=== PATIENT | female | born 1955 | race Caucasian/White ===

== ENCOUNTER → 2016-10-29 | Outpatient (CLI) | payer MEDICARE | END | disposition home or self-care (01) | LOC: GMA 06:15 | PROVIDERS: ATTEND Nurse Practitioner Acute Care | DX: N30.00 Acute cystitis without hematuria (principal) ==

== ENCOUNTER → 2016-11-05 | Outpatient (CLI) | payer MEDICARE ==
--- NOTE | 2016-11-07 09:50 | RAD ---
EXAM DESCRIPTION: XR HIP 2 OR MORE VIEWS CLINICAL HISTORY: PAIN IN RIGHT HIP COMPARISON: Pelvic radiograph on the same visit. TECHNIQUE: AP: neutral and abduction views right hip. FINDINGS: Narrowing of the superior right hip joint space. Prominent right acetabular roof. No definite fracture. Decreased bone density. No abnormal radiodense objects in the soft tissues or joint spaces. IMPRESSION: Narrowing of the right superior hip joint space and hypertrophy of the acetabulum roof. This could be contributing to CAM type femoroacetabular impingement. Electronically signed by: Angelo Roberts MD 11/07/2016 09:48
--- NOTE | 2016-11-07 10:09 | RAD ---
EXAM DESCRIPTION: XR PELVIS 1-2 VIEWS CLINICAL HISTORY: PAIN IN RIGHT HIP COMPARISON: Radiographs of the right hip on the same visit. TECHNIQUE: AP view only. FINDINGS: No fracture dislocation. Mild to moderate decreased bone density. Hypertrophic lateral right acetabular roof.No abnormal radiodense objects in the soft tissues or joint spaces. Spondylosis in the lower lumbar spine. Soft tissue calcifications lateral to the right iliac bone. Hypertrophy of the pubic symphysis. IMPRESSION: Overall bone density is decreased. Hypertrophic superolateral right acetabular spur which could be contributing to pincer type acetabular impingement. No acute bony abnormality of the pelvis. Electronically signed by: Angelo Roberts MD 11/07/2016 10:08
== END | disposition home or self-care (01) ==
LOC: RAD 08:17
PROVIDERS: ATTEND Orthopaedic Surgery
DX: M25.551 Pain in right hip (principal)

== ENCOUNTER → 2016-11-08 | Outpatient (CLI) | payer MEDICARE ==
--- NOTE | 2016-11-09 10:35 | MRI ---
Study: MRI of the Right Hip. Indication: RT HIP PAIN Technique: Multiplanar, multi sequence MRI of the right hip was obtained without intravenous contrast. Comparison: None. Findings: Degenerative full-thickness tearing at the base of the anterior superior right hip labrum. Grade 2/3 chondral thinning throughout the majority right hip joint without full-thickness chondral defect. Mild acetabular roof osteophyte formation. No acute fracture or osteonecrosis. Tiny right effusion Pronounced lower lumbar disc disease. Mild left hip osteoarthritis. Mild to moderate pubic symphysis osteoarthritis. High-grade tendinosis and attenuation bilateral hamstring tendon origins. Tendinosis bilateral gluteus minimus/medius tendon insertions with moderate right and mild left greater trochanteric bursal edema. Impression: Mild right hip osteoarthritis with degenerative tearing of the anterior superior right hip labrum and a tiny effusion. No acute fracture or osteonecrosis. Additional findings as above. Electronically signed by: Travis Rios MD 11/09/2016 7:28 AM FRAME BUILDER
== END | disposition home or self-care (01) ==
LOC: MRI 11:06
PROVIDERS: ATTEND Orthopaedic Surgery
DX: M25.551 Pain in right hip (principal)

== ENCOUNTER 2016-12-08 06:00 | Day surgery (SDC) | payer MEDICARE ==
[2016-12-08] MEDS ORDERED: LACTATED RINGERS 1,000 ML ONE (06:17)
[2016-12-08] MEDS ORDERED: BUPIVACAINE 0.25% INJ 30 ML VIAL INJ ONE (06:29)
[2016-12-08] MEDS ORDERED: LIDOCAINE 1% W/ EPINEPHRINE 20 ML VIAL INJ ONE (06:29)
[2016-12-08] MEDS ORDERED: methylPREDNISolone ACETATE 80 MG/ML VIAL ONE (06:30)
[2016-12-08] MEDS ORDERED: fentaNYL CITRATE INJ 50 MCG/ML AMP ONE (07:57)
[2016-12-08 09:38] VITALS: BP 138/73; TEMP 96.8; O2SAT 98
[2016-12-08] MEDS ORDERED: PROPOFOL 200 MG/20 ML VIAL IV ONE (12:00)
[2016-12-08] MEDS ORDERED: LIDOCAINE 1% 10 ML VIAL INJ ONE (12:00)
--- NOTE | 2016-12-16 09:14 | OP ---
DATE OF PROCEDURE: 12/08/16 PREOPERATIVE DIAGNOSIS: 1. Arthritis of the hip. POSTOPERATIVE DIAGNOSIS: 1. Arthritis of the hip. PROCEDURE: 1. Injection under anesthesia. SURGEON: Aniceto Emerson MD. COOPER HELPER: Angelo Stanford CST, SA-C. ANESTHESIA: Conscious sedation. COMPLICATIONS: None. FINDINGS: Arthritis of the hip. INDICATION: The patient has a history of pain associated with the hip and has been diagnosed with arthritis. She is not currently a candidate for surgical intervention. Despite that, we do want to get her some relief, so we discussed options and the risks, benefits and alternatives to the current proposed procedure. After discussing those risks, benefits and alternatives, the patient has given informed consent for that. PROCEDURE: The patient was brought to the Operating Room and placed in supine position. Conscious sedation was administered. The groin was sterilely prepped. Through a medial portal, an 18-gauge spinal needle was inserted into the joint capsule. Once confirmation of placement of the needle into the joint had been made, a mixture of lidocaine and Depo-Medrol was injected. Following that, the needle was withdrawn. Pressure was held on the injection site. The wound was then covered with a sterile bandage. The patient was then taken back to the Day Surgery Unit. POSTOPERATIVE INSTRUCTIONS: The patient will be weight-bearing as tolerated. The patient will followup with us in ten days. #[id number] [facility]
== END 2016-12-08 09:12 | disposition home or self-care (01) ==
LOC: AMB 06:00
PROVIDERS: ATTEND Orthopaedic Surgery
DX: M16.11 Unilateral primary osteoarthritis, right hip (principal); Z96.659 Presence of unspecified artificial knee joint; Z79.899 Other long term (current) drug therapy
CPT/HCPCS: 01200; 20610; 76000; 82948; 87070; J1030; J3010; J3490; J7120

== ENCOUNTER → 2017-02-17 | Outpatient (CLI) | payer MEDICARE ==
--- NOTE | 2017-02-19 13:53 | RAD ---
EXAM DESCRIPTION: Wrist,Right 3 Views CLINICAL HISTORY: 61 years,Female ,PAIN IN RIGHT WRIST COMPARISON: None FINDINGS: The right wrist demonstrates no evidence of fractures or acute abnormalities. Soft tissues appear unremarkable. Joint spaces are demonstrate severe loss at the radial and ulnar carpal row. Also the distal radioulnar joint there is ossified changes. And deformity to the distal ulna most likely due to prior trauma. Severe narrowing of the scaphoid joint with the trapezium and moderate trapezium trapezoid and base of the first metacarpal joint narrowing. As well as mild narrowing of the second metacarpal base. And also radial abutment of upon the lunate with severe narrowing. Severe narrowing at the first metacarpal phalangeal joint with ossified changes. IMPRESSION: Severe to moderate osteoarthritic changes throughout the right wrist as described above including the first metacarpophalangeal joint Electronically signed by: Michele Anders MD 02/19/2017 1:54 PM CDT
== END | disposition home or self-care (01) ==
LOC: RAD 08:52
PROVIDERS: ATTEND Orthopaedic Surgery
DX: M25.531 Pain in right wrist (principal)

== ENCOUNTER 2017-02-23 05:36 | Day surgery (SDC) | payer MEDICARE ==
[2017-02-23] MEDS ORDERED: SODIUM CHL 0.9% 100ML MINI-BAG 0 ML IVPB ONE (06:01)
[2017-02-23] MEDS ORDERED: LACTATED RINGERS 0 ML ONE (06:01)
[2017-02-23] MEDS ORDERED: ceFAZolin SODIUM 1 GM VIAL ONE ×2 (06:01→06:11)
[2017-02-23] MEDS ORDERED: LACTATED RINGERS 1,000 ML ONE (06:11)
[2017-02-23] MEDS ORDERED: SODIUM CHL 0.9% 100ML MINI-BAG 100 ML IVPB ONE (06:11)
[2017-02-23] MEDS ORDERED: BUPIVACAINE 0.25% INJ 30 ML VIAL INJ ONE (06:23)
[2017-02-23] MEDS ORDERED: predniSONE 5 MG TAB ONE (06:45)
[2017-02-23] MEDS ORDERED: OMEPRAZOLE CAP 20 MG CAP ONE (06:45)
[2017-02-23] MEDS ORDERED: predniSONE 1 MG TAB ONE (06:46)
[2017-02-23] MEDS ORDERED: MIDAZOLAM INJ 5 MG/5 ML VIAL ONE (08:21)
[2017-02-23] MEDS ORDERED: fentaNYL CITRATE INJ 50 MCG/ML AMP ONE (08:21)
[2017-02-23] MEDS ORDERED: HYDROCORTISONE SOD SUCC INJ 100 MG/2 ML VIAL ONE (08:47)
[2017-02-23] MEDS ORDERED: VANCOMYCIN HCL INJ 1,000 MG VIAL IVPB ONE (08:51)
[2017-02-23] MEDS ORDERED: SODIUM CHLORIDE 0.9% 250ML 250 ML ONE (08:52)
[2017-02-23] MEDS: LIDOCAINE 1% 50 ML VIAL INJ ONE ×2 (08:54→08:59)
[2017-02-23] MEDS: ceFAZolin SODIUM 1 GM VIAL ONE ×2 (08:58→09:25)
[2017-02-23] MEDS: VANCOMYCIN HCL INJ 1,000 MG VIAL IVPB ONE ×2 (08:59→09:25)
[2017-02-23] MEDS ORDERED: HYDROmorphone HCL INJ 2 MG/ML VIAL ONE (09:09)
[2017-02-23] MEDS ORDERED: ONDANSETRON INJ 4 MG/2 ML VIAL ONE (10:10)
[2017-02-23 11:27] VITALS: BP 163/85; TEMP 97.6; O2SAT 95
[2017-02-23] MEDS ORDERED: SODIUM CHLORIDE 0.9% 50 ML VIAL INJ ONE (12:00)
[2017-02-23] MEDS ORDERED: LIDOCAINE 1% 10 ML VIAL INJ ONE (12:00)
[2017-02-23] MEDS ORDERED: PROPOFOL 200 MG/20 ML VIAL IV ONE (12:00)
[2017-02-23] MEDS ORDERED: METOCLOPRAMIDE HCL INJ 10 MG/2 ML VIAL IV ONE (12:00)
[2017-02-23] MEDS ORDERED: raNITIdine HCL INJ 25 MG/ML VIAL IV ONE (12:00)
[2017-02-23] MEDS ORDERED: HYDROCORTISONE SOD SUCC INJ 100 MG/2 ML VIAL IV ONE (12:00)
[2017-02-23] MEDS ORDERED: PHENYLEPHRINE INJ 1ML 10 MG/ML VIAL IV ONE (12:00)
--- NOTE | 2017-03-23 08:20 | OP ---
DATE OF PROCEDURE: 02/23/17 PREOPERATIVE DIAGNOSIS: 1. Ganglion cyst, right hand. POSTOPERATIVE DIAGNOSIS: 1. Ganglion cyst, right hand. PROCEDURE: 1. Excision of cyst. SURGEON: Aniceto Emerson MD. ANIMAL CRUELTY INVESTIGATOR: Angelo Stanford CST, SA-C. ANESTHESIA: General anesthesia. COMPLICATIONS: None. FINDINGS: Very large cyst extending from the wrist joint to the thenar eminence volarly. INDICATION: Annita has a history of mass on the palmar aspect of the hand that has been there for quite sometime and although is fluctuating in size, seems to have gotten larger lately. Because of the continued cyst and the functional deficits caused by it, she has requested excision. After discussing the risks, benefits and alternatives to hat, she has given informed consent. PROCEDURE: The patient was brought to the Operating Room and placed in supine position. General anesthesia was induced. The patient's arm was sterilely prepped and draped. Following prepping and draping, an incision was made on the thenar eminence extending proximally directly over the mass. Upon blunt dissection, the mass presented itself and it was clearly a ganglion cyst. The ganglion cyst was from the surrounding tissue using blunt dissection and carried down proximally. The stalk of the cyst was identified and transected. The wound was very thoroughly irrigated and following irrigation, the wound was closed with running and interrupted subcuticular stitches. Sterile dressings were placed. The patient was awoken from anesthesia and taken to Recovery. POSTOPERATIVE INSTRUCTIONS: She will followup with us in two days. She has been encouraged to do range of motion of the digits. #[id number] [facility]
== END 2017-02-23 11:10 | disposition home or self-care (01) ==
LOC: AMB 05:36
PROVIDERS: ATTEND Orthopaedic Surgery
DX: M67.431 Ganglion, right wrist (principal); I10 Essential (primary) hypertension; K21.9 Gastro-esophageal reflux disease without esophagitis; M06.9 Rheumatoid arthritis, unspecified; G25.81 Restless legs syndrome; B02.29 Other postherpetic nervous system involvement; J44.9 Chronic obstructive pulmonary disease, unspecified; E66.9 Obesity, unspecified; Z68.35 Body mass index [BMI] 35.0-35.9, adult; Z96.653 Presence of artificial knee joint, bilateral; Z79.899 Other long term (current) drug therapy
CPT/HCPCS: 01810; 25111; A4216; J0690; J1170; J1720; J2250; J2405; J2765; J2780; J3010; J3370; J3490; J7050; J7120; J7512

== ENCOUNTER → 2017-03-07 | Outpatient (CLI) | payer MEDICARE ==
--- NOTE | 2017-03-08 09:10 | MRI ---
MRI right shoulder without contrast INDICATION: Rotator cuff sprain chronic pain no specific injury TECHNIQUE: Noncontrast MR imaging right shoulder standard protocol FINDINGS: There is diffuse soft tissue edema dorsal to the clavicle related to direct trauma or an injection in this area versus soft tissue inflammation. There is adjacent moderate AC joint arthrosis with adjacent cystic change/ganglion. There is also diffuse severe subacromial and subdeltoid bursitis. There are chronic high-grade partial tears and tendinosis of the supraspinatus and infraspinatus with cystic changes in the humerus. There is also severe background osteoarthrosis of the glenohumeral joint with diffuse labral degeneration. Patchy marrow edema in the proximal humerus is primarily related to the osteoarthrosis as well as red marrow proliferation. There are cystic changes along the superficial margin of the infraspinatus most likely ganglion formation from interstitial rotator cuff tear. Some of this may also be extending from the bursa. There is diffuse tendinosis and fairly high-grade chronic partial tear of the subscapularis. There is diffuse maceration of the long head bicep with mild medial subluxation. There is severe retroversion of the glenoid related to the osteoarthrosis. Muscle atrophy is generally grade 1 although it is up to grade 2 and infraspinatus. IMPRESSION: Severe osteoarthrosis of the right glenohumeral joint with diffuse labral degeneration and retroversion of the glenoid Diffuse chronic partial tears throughout the rotator cuff tendons high-grade with background tendinosis without complete retraction Low-grade fatty muscle atrophy and volume loss Hypertrophic AC joint osteoarthrosis with adjacent ganglion formation/cystic change Extensive subacromial and subdeltoid bursitis Fluid tracking or cystic change superficial to the infraspinatus from the rotator cuff tear or the adjacent bursitis Diffuse edema in the soft tissues dorsal to the clavicle related to trauma or injection nonspecific Electronically signed by: Kumar Koenig MD 03/08/2017 9:09 AM CDT
== END | disposition home or self-care (01) ==
LOC: MRI 12:54
PROVIDERS: ATTEND Orthopaedic Surgery
DX: S43.429D Sprain of unspecified rotator cuff capsule, subsequent encounter (principal); M19.011 Primary osteoarthritis, right shoulder; M75.51 Bursitis of right shoulder

== ENCOUNTER 2019-02-01 16:40 | Observation (INO) | payer MEDICARE, OTHER ==
[2019-02-01] MEDS ORDERED: POTASSIUM CHLORIDE ELIXIR 20 MEQ/15 ML UD PO ONE ×2 (17:47→18:07)
--- NOTE | 2019-02-01 17:51 | RAD ---
EXAM DESCRIPTION: Chest,2 Views CLINICAL HISTORY: 63 years Female palpitations COMPARISON: None TECHNIQUE: Two view study of the chest was performed. FINDINGS: Cardiac size is within normal limits. Central vessels are not increased. No infiltrates or effusions seen. No consolidation. No pneumothorax. Right shoulder prosthesis. IMPRESSION: No active disease. Electronically signed by: Elda Schmidt MD 02/01/2019 5:49 PM CDT
[2019-02-01] MEDS ORDERED: METOPROLOL TARTRATE 25 MG TAB PO ONE (18:00)
[2019-02-01] MEDS ORDERED: SODIUM CHLORIDE 0.9% 1000ML 1,000 ML IVS ONE (18:02)
[2019-02-01] MEDS ORDERED: predniSONE 20 MG TAB ONE (18:19)
[2019-02-01] MEDS ORDERED: predniSONE 20 MG TAB PO ONE (18:19)
[2019-02-01] MEDS ORDERED: POTASSIUM CHLORIDE INJ 40 MEQ 40 MEQ in SODIUM CHLORIDE 0.9% 250ML 250 ML IVPB ONE (18:20)
--- NOTE | 2019-02-01 18:23 | ED.PDOC ---
History of Present Illness - General Chief Complaint: Syncope/Near Syncope Stated Complaint: Pt felt dizzy and fluttering heart Time Seen by Provider: 02/01/19 16:43 Source: patient Exam Limitations: no limitations - History of Present Illness Initial Comments: the patient is a 63-year-old female presenting to the emergency room secondary to a feeling of palpitations today while she was at [facility]. No syncope or near syncope today. Yesterday she had a near syncopal episode when she took her to the doctor and had some palpitations at that time. She had an EKG done there which showed apparently some arrhythmia. She was to be set up with her primary care doctor with a cardiac monitoring device but has not been yet. She was found to have urinary tract infection and was started on ciprofloxacin last night. No chest pain. No shortness of breath today or yesterday. No near syncope today only yesterday. The patient is an ex-nurse. She does have a history of hypokalemia. No nausea vomiting or diarrhea. Today she has frequent PVCs and at times bigeminy. Timing/Duration: unsure Severity: mild Improving Factors: nothing Worsening Factors: nothing Associated Symptoms: denies symptoms Allergies/Adverse Reactions: Allergies NO KNOWN ALLERGY Allergy (Verified 02/01/19 16:59) Home Medications: Ambulatory Orders Bisoprolol/Hctz 5/6.25MG [Ziac] 1 tab PO DAILY 07/15/14 Ibuprofen 800 mg PO TID 07/15/14 Omeprazole [Prilosec Cap] 20 mg PO BEDTIME 07/15/14 Ropinirole Hydrochloride [Requip] 1 mg PO BEDTIME 07/15/14 Venlafaxine HCl [Effexor Xr] 300 mg PO DAILY 07/15/14 predniSONE 5 mg PO DAILY 07/15/14 Gabapentin [Neurontin] 600 mg PO NOON 07/20/14 Gabapentin [Neurontin] 600 mg PO QAM 07/20/14 Gabapentin [Neurontin] 900 mg PO BEDTIME 07/20/14 Azathioprine [Imuran] 150 mg PO DAILY 10/18/14 Docusate Sodium 100 mg PO DAILY 10/18/14 Atorvastatin Calcium [Lipitor] 40 mg PO BEDTIME 12/07/16 Saccharomyces Boulardii [Probiotic] 500 mg PO QAM 12/07/16 Cyclobenzaprine HCl [Flexeril] 10 mg PO TID 02/22/17 HYDROcodone 10MG/APAP 325MG [[place] 10/325] 1 ea PO Q6H PRN 02/22/17 Famciclovir 500 mg PO BID 02/01/19 fentaNYL PATCH 100 MCG/HR [Duragesic Patch 100 MCG/HR] 75 mcg TD Q72H 02/01/19 Review of Systems - Review of Systems Constitutional: States: no symptoms reported EENTM: States: no symptoms reported Respiratory: States: no symptoms reported Cardiology: States: palpitations Gastrointestinal/Abdominal: States: no symptoms reported Genitourinary: States: no symptoms reported Musculoskeletal: States: no symptoms reported - chronic pain issues Skin: States: no symptoms reported Neurological: States: no symptoms reported - chronic pain issues Endocrine: States: no symptoms reported All other Systems: No Change from Baseline Past Medical History (General) - Patient Medical History Hx Seizures: No Hx Stroke: No Hx Asthma: No Hx of COPD: No Hx Cardiac Disorders: No Hx Congestive Heart Failure: No Hx Pacemaker: No Hx Hypertension: Yes Hx Diabetes: No Hx Cancer: No Hx MRSA: No Surgical History: other - Vaccination History Hx Tetanus, Diphtheria Vaccination: No Hx Influenza Vaccination: Yes Hx Pneumococcal Vaccination: Yes Immunizations Up to Date: No - Social History Hx Tobacco Use: No Hx Alcohol Use: No Hx Substance Use: No Hx Substance Use Treatment: No Hx Depression: No Hx Physical Abuse: No Hx Emotional Abuse: No - Female History Patient is a Female of Child Bearing Age (10 -59 yrs old): No Patient : No Family Medical History - Family History Father Hx Family Hypertension: Yes Hx Family;Other: diabetes Daughter Hx Family Diabetes: Yes Physical Exam - Physical Exam General Appearance: Alert, Anxious, No apparent distress Eye Exam: bilateral normal Ears, Nose, Throat: hearing grossly normal, normal ENT inspection Neck: non-tender, full range of motion, supple Respiratory: lungs clear, normal breath sounds, no respiratory distress, no acc essory muscle use Cardiovascular/Chest: normal peripheral pulses, no edema, other - regular rate but irregular rhythm. Frequent PVCs on telemetry. Peripheral Pulses: radial,right: 2+, radial,left: 2+, dorsalis pedis,right: 2+, dorsalis pedis,left: 2+ Gastrointestinal/Abdominal: non tender, soft Rectal Exam: deferred Back Exam: other - chronic pain issues Extremity: normal range of motion, non-tender, normal inspection, no pedal edema, normal capillary refill Neurologic: anime artist II-XII nml as tested, alert, normal mood/affect, oriented x 3 Skin Exam: normal color Comments: Vital Signs - 24 hr 02/01/19 02/01/19 16:48 16:49 Temperature 97.3 F L Pulse Rate [L 88 88 finger] Respiratory 24 24 Rate Blood Pressure 122/67 [R arm] O2 Sat by Pulse 100 Oximetry Progress - Progress Progress: 02/01/19 18:24 the patient is a 63-year-old female presenting with palpitations and a near syncopal episode yesterday. The patient does have frequent PVCs. This is likely contributing. She also has a UTI and has been started on ciprofloxacin. The patient is given a liter of fluid for likely mild dehydration related to the UTI. Additionally likely contributing, the patient does have significant hypokalemia and has been started on supplementation. She will be admitted for monitoring overnight to make sure there is no more significant arrhythmia occurring. The patient is not having chest pain and initial cardiac enzymes are negative. Admitted for continued care. - Results/Orders Results/Orders: chest x-ray shows no acute pathology. No fluid overload. EKG shows normal sinus rhythm at 84 bpm with PVCs. Borderline QT interval. Left atrial dilation. Slow R-wave progression. Normal axis. Borderline criteria for LVH. No ST segment or T-wave changes definitive for acute ischemia. Laboratory Tests 02/01/19 02/01/19 17:05 17:05 WBC 4.8 RBC 3.81 L Hgb 12.1 Hct 35.8 L MCV 94.0 MCH 31.7 H MCHC 33.7 RDW 17.2 H Plt Count 176 MPV 9.3 Absolute Neuts (auto) 3.70 Absolute Lymphs (auto) 0.70 L Absolute Monos (auto) 0.30 Absolute Eos (auto) 0.10 Absolute Basos (auto) 0.00 Neutrophils % 76.6 Lymphocytes % 14.5 L Monocytes % 6.6 Eosinophils % 1.5 Basophils % 0.8 Sodium 139 Potassium 3.1 L Chloride 100 L Carbon Dioxide 25 Anion Gap 17.1 BUN 16 Creatinine 0.76 BUN/Creatinine Ratio 21.1 H Random Glucose 162 H Serum Osmolality 282.3 Calcium 9.4 Magnesium 1.8 Total Bilirubin 0.9 AST 29 ALT 10 Alkaline Phosphatase 70 Creatine Kinase 81 CK-MB (CK-2) 1.7 CK-MB (CK-2) % Not Reportable Troponin I < 0.02 B-Natriuretic Peptide 86.7 Serum Total Protein 8.5 H Albumin 4.3 Globulin 4.2 H Albumin/Globulin Ratio 1.0 L TSH 0.36 Departure - Departure Clinical Impression: Near syncope, Ventricular bigeminy, Hypokalemia, Cystitis Disposition: Admit Patient Departure Forms: ED Discharge - Pt. Copy, Patient Portal Self Enrollment Referrals: Leonides Coronado MD [Primary Care Provider] - 1-2 Weeks Home Medications: Ambulatory Orders Bisoprolol/Hctz 5/6.25MG [Ziac] 1 tab PO DAILY 07/15/14 Ibuprofen 800 mg PO TID 07/15/14 Omeprazole [Prilosec Cap] 20 mg PO BEDTIME 07/15/14 Ropinirole Hydrochloride [Requip] 1 mg PO BEDTIME 07/15/14 Venlafaxine HCl [Effexor Xr] 300 mg PO DAILY 07/15/14 predniSONE 5 mg PO DAILY 07/15/14 Gabapentin [Neurontin] 600 mg PO NOON 07/20/14 Gabapentin [Neurontin] 600 mg PO QAM 07/20/14 Gabapentin [Neurontin] 900 mg PO BEDTIME 07/20/14 Azathioprine [Imuran] 150 mg PO DAILY 10/18/14 Docusate Sodium 100 mg PO DAILY 10/18/14 Atorvastatin Calcium [Lipitor] 40 mg PO BEDTIME 12/07/16 Saccharomyces Boulardii [Probiotic] 500 mg PO QAM 12/07/16 Cyclobenzaprine HCl [Flexeril] 10 mg PO TID 02/22/17 HYDROcodone 10MG/APAP 325MG [[place] 10/325] 1 ea PO Q6H PRN 02/22/17 Famciclovir 500 mg PO BID 02/01/19 fentaNYL PATCH 100 MCG/HR [Duragesic Patch 100 MCG/HR] 75 mcg TD Q72H 02/01/19 Decision To Admit - Decistion To Admit Decision to Admit Reason: Medical Nature Decision to Admit Date: 02/01/19 Decision to Admit Time: 18:26
[2019-02-01] MEDS ORDERED: SODIUM CHLORIDE 0.9% 250ML 250 ML ONE (18:59)
[2019-02-01] MEDS ORDERED: POTASSIUM CHLORIDE 40mEq 20ML VIAL ONE (18:59)
--- NOTE | 2019-02-01 19:46 | HP ---
SUPERVISING PHYSICIAN: Jaswant Dunn MD CHIEF COMPLAINT: Palpitations. HISTORY OF PRESENT ILLNESS: This is a 63-year-old female patient who presented to the Emergency Room today secondary to palpitations while she was at [facility]. She had no syncope today, but yesterday she was in Dr. Maynard's office with her for a routine checkup and had a syncopal type spell at his office. She did not lose consciousness or fall. Breonna Maynard RN, Dr. Maynard's , checked her heart at that time and said her heartbeat was very irregular. Her blood pressure was within normal limits, but felt that she should be checked out and was sent to the Urgent Care Clinic at [facility]. She is a patient of Dr. Coronado'. She has a history of rheumatoid arthritis and was seen in clinic. She had no problems with her blood pressure, but her heart rate continued to be irregular. processing talc and borate supervisor was ordered for the patient although she has not received it yet. When she came into the Emergency Room today, her vital signs were stable with temperature 97.3, heart rate 88l. It did get as high as 100. Blood pressure 122/67, respiratory rate 24, O2 saturation 100% on room air. She had PVCs on the radiographer cardiac catheterization and frequently went into bigeminy. Her lab was done and she had a sodium 139, but her potassium was low at 3.1, chloride 100, glucose 162. Cardiac enzymes were negative. Liver enzymes were negative. WBCs 4.8, hemoglobin 12.1, hematocrit 35.8. Chest x-ray showed no active disease. PAST MEDICAL HISTORY: 1. Restless leg syndrome. 2. Osteoarthritis. 3. Rheumatoid arthritis followed by Dr. Mohamud in [place]. 4. Sjgren's syndrome. 5. Gastroesophageal reflux disease. 6. Hypertension. 7. Cisco-Brink. PAST SURGICAL HISTORY: 1. Left total knee arthroplasty. 2. Right total knee arthroplasty. 3. Right shoulder surgery. 4. Hysterectomy. 5. Cholecystectomy. 6. Bilateral cataract removal. 7. Retinal repair of the right eye due to detached retina. CURRENT MEDICATIONS: Per the EMR and awaiting verification. ALLERGIES: NO KNOWN DRUG ALLERGIES. FAMILY HISTORY: Diabetes and breast cancer. 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 She lives in [place] with her ex-, Jose Eduardo. She denies any tobacco, ETOH or illicit drug use. She does report being around secondhand smoke. REVIEW OF SYSTEMS: At this time, review of systems is all negative except as per history of present illness although presently she is not having any palpitations. PHYSICAL EXAMINATION: VITAL SIGNS: Temperature 97.2. Heart rate 88. Blood pressure 116/72. Respiratory rate 18. O2 saturation 98% on room air. GENERAL: This is a 63-year-old obese female who is sitting up in her hospital bed. She is in no acute distress. HEENT: Normocephalic, atraumatic. Pupils are equal and reactive. Oropharynx is clear. NECK: Supple without mass. RESPIRATORY: Essentially clear to auscultation bilaterally. CARDIOVASCULAR: Regular rate and rhythm at this time although she does occasionally have an irregular beat. She runs sinus rhythm and bigeminy on the radiographer cardiac catheterization. GASTROINTESTINAL: Abdomen is soft, nondistended, nontender. Bowel sounds are positive. EXTREMITIES: No cyanosis, clubbing or edema. NEUROLOGIC: Awake, alert and oriented times three. Cranial nerves II-XII are grossly intact. SKIN: Warm and dry. LABORATORY: Labs and films are as per history of present illness. IMPRESSION: 1. Irregular heart rate with premature ventricular contractions. She is frequently in bigeminy. Her vital signs otherwise are stable at this time. 2. Hypokalemia. 3. Rheumatoid arthritis. 4. Sjgren's syndrome. 5. Gastroesophageal reflux disease. 6. Hypertension. 7. Restless leg syndrome. PLAN: I have placed the patient in Observation. She will be on the radiographer cardiac catheterization over the next one to two days. I will need to check with Dr. Coronado' office to see when her radiographer cardiac catheterization will be received. Hopefully, we can discharge her with that. Otherwise, we may need to put her on a Holter monitor due to the long holiday weekend. She received some potassium in the Emergency Room and I will recheck her labs in the morning. Her home medications will be re-started once they have been verified. Lovenox is also ordered for DVT prophylaxis and a proton pump inhibitor for ulcer prophylaxis. We will continue to monitor the patient closely and follow as needed. #[id number] [facility]
[2019-02-01] MEDS ORDERED: ONDANSETRON INJ 4 MG/2 ML VIAL IV PRN (20:38)
[2019-02-01] MEDS ORDERED: SODIUM CHLORIDE 0.9% (FLUSH) 10 ML SYG IV PRN (20:38)
[2019-02-01] MEDS ORDERED: IV SET AND CAP CHANGE INJ INJ SCH (21:00)
[2019-02-01] MEDS: SODIUM CHLORIDE 0.9% (FLUSH) 10 ML SYG IV SCH (21:07)
[2019-02-01] MEDS: ENOXAPARIN SODIUM 40 MG/0.4 ML SYG SUBCU SCH (21:08)
[2019-02-01] MEDS ORDERED: CYCLOBENZAPRINE HCL 10 MG TAB PO PRN (22:31)
[2019-02-01] MEDS ORDERED: GABAPENTIN 900 MG PO SCH (22:33)
[2019-02-01] MEDS ORDERED: GABAPENTIN 300 MG CAP PO ONE (23:00)
[2019-02-02] MEDS ORDERED: traZODone HCL 100 MG TAB PO ONE (00:56)
[2019-02-02] MEDS ORDERED: OMEPRAZOLE CAP 20 MG CAP PO ONE (00:57)
[2019-02-02] MEDS: HYDROcodone 10MG/APAP 325MG 1 EA TAB PO PRN ×3 (01:09→15:46)
[2019-02-02] MEDS ORDERED: OMEPRAZOLE CAP 20 MG CAP PO SCH ×2 (06:30→21:00)
[2019-02-02] MEDS ORDERED: HCTZ PO SCH (09:00)
[2019-02-02] MEDS ORDERED: BISOPROLOL PO SCH (09:00)
[2019-02-02] MEDS: SODIUM CHLORIDE 0.9% (FLUSH) 10 ML SYG IV SCH ×2 (09:19→20:55)
[2019-02-02] MEDS: DOCUSATE SODIUM 100 MG CAP PO SCH (09:19)
[2019-02-02] MEDS: GABAPENTIN 300 MG CAP PO SCH ×2 (09:20→12:24)
[2019-02-02] MEDS ORDERED: MAGNESIUM SULFATE PREMIX 2GM 2 GM in PREMIX BAG 1 BAG IVPB ONE (10:16)
[2019-02-02] MEDS: AZATHIOPRINE 50 MG PO SCH (10:32)
[2019-02-02] MEDS: FAMCICLOVIR 500 MG PO SCH (10:32)
[2019-02-02] MEDS ORDERED: MAGNESIUM SULFATE PREMIX 2GM 50 ML IVPB ONE (10:33)
[2019-02-02] MEDS: CIPROFLOXACIN 250 MG TAB PO SCH (15:43)
--- NOTE | 2019-02-02 19:49 | PN ---
DATE: 02/02/19 SUPERVISING PHYSICIAN: Jaswant Dunn M.D. SUBJECTIVE: The patient still feels some palpitations on and off but she has not had any syncopal episodes. She has actually been up and walking around. I did discuss with her about the CardioNet. Hopefully this will be here tomorrow. Discussed keeping; her overnight for additional close cardiac monitoring given that she is having frequent PVCs. OBJECTIVE: VITAL SIGNS: Temperature 98.6, pulse 83, blood pressure 123/81, respirations 20, satting 99% on room air. Weight is 83.5 kg. CHEST: Lungs were clear to auscultation. HEART: Regular rate and rhythm with some PVCs noted on the monitor. ABDOMEN: Obese but soft, non-tender. Positive bowel sounds. EXTREMITIES: Without any clubbing, cyanosis or edema. NEUROLOGIC: She is alert and oriented times three. LABORATORY: White count 2,800, hemoglobin 10.1, hematocrit 30.0, platelet count 139,000. Differential does show a left shift with chemistries showing normal electrolytes today with potassium 3.8. Magnesium was slightly low at 1.7, BUN 13, creatinine 0.52. RADIOLOGY: No additional radiographic studies. ASSESSMENT: 1. Irregular heart rate with premature ventricular contractions. She is frequently in bigeminy. Her vital signs otherwise are stable at this time. 2. Electrolyte imbalance with hypokalemia, resolved with fluids and hypomagnesemia requiring replacement. 3. Rheumatoid arthritis. 4. Sjgren's syndrome. 5. Gastroesophageal reflux disease. 6. Hypertension. 7. Restless leg syndrome. PLAN: Will keep the patient overnight for an additional 24 hours of cardiac monitoring. activated sludge attendant, CardioNet, has been ordered. It should be here tomorrow, hopefully. If it is not, then we can discharge her at least over the weekend with a Holter monitor. Will give her 2 grams of magnesium. I have encouraged her to ambulate. She remains on Lovenox for DVT prophylaxis. Will anticipate discharging tomorrow. Until then, will continue to monitor and treat as needed. [id number]
[2019-02-02] MEDS: IBUPROFEN 400 MG TAB PO SCH (20:52)
[2019-02-02] MEDS: ENOXAPARIN SODIUM 40 MG/0.4 ML SYG SUBCU SCH (20:54)
[2019-02-02] MEDS ORDERED: GABAPENTIN 300 MG CAP PO SCH (21:00)
[2019-02-02] MEDS ORDERED: ATORVASTATIN 20 MG TAB PO SCH (21:00)
[2019-02-02] MEDS ORDERED: traZODone HCL 100 MG TAB PO SCH (21:00)
[2019-02-03] MEDS: CIPROFLOXACIN 250 MG TAB PO SCH (02:34)
[2019-02-03] MEDS: HYDROcodone 10MG/APAP 325MG 1 EA TAB PO PRN (04:22)
[2019-02-03] MEDS ORDERED: predniSONE 10 MG TAB PO SCH (09:00)
[2019-02-03] MEDS ORDERED: fentaNYL PATCH 75 MCG/HR 1 EA PATCH TD SCH (09:00)
[2019-02-03] MEDS ORDERED: NON-FORMULARY MEDICATION 1 EA MIS (Bisoprolol Fumarate [Bisoprolol Fumarate] 5 MG) PO SCH (09:00)
[2019-02-03] MEDS ORDERED: VENLAFAXINE XR 75 MG CAP PO SCH (09:00)
[2019-02-03] MEDS ORDERED: BISOPROLOL 5 MG PO SCH (09:00)
[2019-02-03] MEDS ORDERED: REMOVE OLD PATCH TOP SCH (09:00)
[2019-02-03] MEDS ORDERED: POTASSIUM CHLORIDE 20 MEQ TAB PO ONE (09:02)
[2019-02-03 09:06] VITALS: O2SAT 96
[2019-02-03] MEDS: AZATHIOPRINE 50 MG PO SCH (09:19)
[2019-02-03] MEDS: GABAPENTIN 300 MG CAP PO SCH ×2 (09:20→12:29)
[2019-02-03] MEDS: SODIUM CHLORIDE 0.9% (FLUSH) 10 ML SYG IV SCH (09:21)
[2019-02-03] MEDS: IBUPROFEN 400 MG TAB PO SCH (09:21)
[2019-02-03] MEDS: DOCUSATE SODIUM 100 MG CAP PO SCH (09:21)
[2019-02-03] MEDS: FAMCICLOVIR 500 MG PO SCH (09:27)
--- NOTE | 2019-02-03 11:39 | RAD ---
EXAM: XR Chest, 2 Views CLINICAL HISTORY: 63 years old and is Female; cough, neutropenic fever TECHNIQUE: Frontal and lateral views of the chest. COMPARISON: 02/01/2019 FINDINGS: Limitations: None. Lungs: Unremarkable. No consolidation. Pleural space: Unremarkable. No pneumothorax. Heart: Unremarkable. No cardiomegaly. Mediastinum: Unremarkable. Bones/joints: Stable appearance of right shoulder arthroplasty components. IMPRESSION: No acute findings. Electronically signed by: Lizzy Lopez MD 02/03/2019 11:37 AM CDT
[2019-02-03 13:31] VITALS: BP 152/94; TEMP 97
--- NOTE | 2019-02-04 16:23 | DS ---
SUPERVISING PHYSICIAN: Nas Torres M.D. ADMISSION DIAGNOSIS: 1. Irregular heart rate with premature ventricular contractions. She is frequently in bigeminy. Her vital signs otherwise are stable at this time. 2. Hypokalemia. 3. Rheumatoid arthritis. 4. Sjgren's syndrome. 5. Gastroesophageal reflux disease. 6. Hypertension. 7. Restless leg syndrome. DISCHARGE DIAGNOSIS: 1. Irregular heart rate with premature ventricular contractions. She is frequently in bigeminy. Her vital signs were showing to be stable and her rhythm actually was showing just a very rare PVC at discharge. 2. Electrolyte imbalance with hypokalemia returning to baseline with fluids as well as replacement of magnesium. 3. Rheumatoid arthritis. 4. Sjgren's syndrome. 5. Gastroesophageal reflux disease. 6. Hypertension. 7. Restless leg syndrome. REASON FOR HOSPITALIZATION: This is a 63-year-old female patient who presented to the Emergency Room today secondary to palpitations while she was at [facility]. She had no syncope today, but yesterday she was in Dr. Maynard's office with her for a routine checkup and had a syncopal type spell at his office. She did not lose consciousness or fall. Breonna Maynard RN, Dr. Maynard's , checked her heart at that time and said her heartbeat was very irregular. Her blood pressure was within normal limits, but felt that she should be checked out and was sent to the Urgent Care Clinic at [facility]. She is a patient of Dr. Escobar. She has a history of rheumatoid arthritis and was seen in clinic. She had no problems with her blood pressure, but her heart rate continued to be irregular. surveillance monitor was ordered for the patient although she has not received it yet. When she came into the Emergency Room today, her vital signs were stable with temperature 97.3, heart rate 88l. It did get as high as 100. Blood pressure 122/67, respiratory rate 24, O2 saturation 100% on room air. She had PVCs on the monitoring manager and frequently went into bigeminy. Her lab was done and she had a sodium 139, but her potassium was low at 3.1, chloride 100, glucose 162. Cardiac enzymes were negative. Liver enzymes were negative. WBCs 4.8, hemoglobin 12.1, hematocrit 35.8. Chest x-ray showed no active disease. The patient was admitted in stable condition. LABORATORY STUDIES: White count on admission was 4,800, at discharge white count was 2,600 with hemoglobin 10.5, hematocrit 31.0, platelets 144,000. Differential showed to be without a left shift actually, but there was 6% bands. Chemistries: Initial potassium on admission was 3.1, at discharge was 3.1. Otherwise electrolytes were normal with BUN 9, creatinine 0.63. Magnesium was low at 1.7 and was corrected to 1.8 prior to discharge. AST, ALT and alkaline phosphatase were all within normal limits. Troponin was less than 0.02. TSH was normal at 0.36. Urinalysis was within normal limits. MICROBIOLOGY: No microbiology specimens were submitted. RADIOLOGY: She had a chest x-ray on admission and per radiology interpretation showed no active disease. This was followed-up with a chest x-ray on date of discharge given the 6% bands, and the patient was afebrile. No acute findings. EKG showed a sinus arrhythmia with multiple PVCs. No ST or T wave changes to indicate any ischemia or acute injury pattern. HOSPITAL COURSE: Ms. Mix was admitted on 02/01/19 as noted above. She was placed on cardiac telemetry. She was given fluids to correct her electrolyte imbalance. She was monitored closely on cardiac telemetry. She had no additional findings. No acute changes. She was actually ambulating without any complications. Had no return of her near syncopal episodes or any palpitations prior to discharge. Arrangement had been made to put her on the CardioNet monitor but this was not available at time of discharge, therefore she was discharge don the Holter monitor for 48 hours with anticipation of the CardioNet to be available by Tuesday. She was showing on CBC at discharge a low white count and given that she had some immunocompromise from her rheumatoid arthritis medications and showing 6% bands, I did an x-ray and a repeat urinalysis with no signs of infection. The patient was afebrile. I could not find any source of infection. The patient was clinically stable and it was felt that she could continue with outpatient management. PLAN: Ms. Mix was discharged on 02/03/[address] Coronado in the following week. She was to take her medications as instructed. She was to utilize CardioNet system when it was available. Until then she would be on the Holter monitor for 48 hours. She was to return to the hospital to have instructions for the Holter monitor or any other concerning symptoms. She was to increase activity as tolerated but no strenuous activity until she was cleared by Dr. Coronado. No medications were prescribed at discharge. Diet at discharge was regular diet as tolerated. Condition at discharge stable and improved. DISPOSITION: The patient was discharged to the care of family members. #[id number] MTDD
== END 2019-02-03 14:45 | disposition home or self-care (01) ==
LOC: ER 16:40 → MS 19:44
PROVIDERS: ADMIT Nurse Practitioner Acute Care; ATTEND Nurse Practitioner Family
DX: I49.9 Cardiac arrhythmia, unspecified (principal); I49.3 Ventricular premature depolarization; E87.8 Other disorders of electrolyte and fluid balance, not elsewhere classified; E87.6 Hypokalemia; E83.42 Hypomagnesemia; N39.0 Urinary tract infection, site not specified; M06.9 Rheumatoid arthritis, unspecified; M35.00 Sjogren syndrome, unspecified; K21.9 Gastro-esophageal reflux disease without esophagitis; I10 Essential (primary) hypertension; G25.81 Restless legs syndrome; Z96.653 Presence of artificial knee joint, bilateral; Z83.3 Family history of diabetes mellitus; Z80.3 Family history of malignant neoplasm of breast; Z79.891 Long term (current) use of opiate analgesic; Z79.52 Long term (current) use of systemic steroids; Z79.899 Other long term (current) drug therapy
CPT/HCPCS: 96361; 96366; 96367; 96365; 96372 ×2; J3480; J7512 ×2; J7030; J7050; J1650 ×2; J3475; 80048; 82553; 80053 ×2; 36415 ×3; 81001; 85025 ×3; 82550; 83735 ×3; 84443; 84484; 83880; 71046 ×2; 94760 ×3; 93225; 99285; 93005; G0378

== ENCOUNTER → 2019-03-02 | Outpatient (CLI) | payer MEDICARE, OTHER | LOC: RAD 08:53 | PROVIDERS: ATTEND Orthopaedic Surgery | DX: M25.551 Pain in right hip (principal) ==

== ENCOUNTER → 2019-03-09 | Outpatient (CLI) | payer MEDICARE, OTHER ==
--- NOTE | 2019-03-12 07:54 | MRI ---
Study: MRI Pelvis. Indication: RUPTURE OF MUSCLE Technique: Multiplanar, multi sequence MRI of the pelvis obtained without intravenous contrast. Comparison: None. Findings: No acute fracture or osteonecrosis. [id number] bilateral hip osteoarthritis with joint space narrowing and small joint line osteophytes. Mild pubic symphysis osteoarthritis. Lower lumbar disc disease. Mild bilateral sacroiliac joint osteoarthritis. High-grade tendinosis bilateral gluteus minimus/medius tendon insertions with moderate bilateral greater trochanter bursal edema. A grade 1 strain of the medial margin right gluteus caroline muscle noted intramuscular edema. High-grade tendinosis bilateral hamstring tendon origins with associated attenuation but without acute tear. Impression: Acute grade 1 strain medial margin of the right gluteus caroline muscle. Mild to moderate bilateral hip osteoarthritis without acute fracture or osteonecrosis. Additional findings as above. Electronically signed by: Travis Rios MD 03/12/2019 7:51 AM CDT
--- NOTE | 2019-03-12 07:58 | MRI ---
Study: MRI of the Left Shoulder. Indication: LOCALIZED OSTEOARTHRITIS OF THE SOULDER REGION Technique: Multiplanar, multi sequence MRI of the left shoulder was obtained without intravenous contrast. Comparison: None. Findings: Mild AC joint osteoarthritis. Type II acromion with mild lateral downsloping. Supraspinatus and infraspinatus tendinosis without fluid-filled tear. Subscapularis tendinosis with intermediate grade interstitial tearing superiorly. Teres minor tendon intact. Mild atrophy and grade 1-2 fatty infiltrated rotator cuff musculature but with grade 2-3 changes infraspinatus muscle bellies where there is moderate atrophy. Fluid distention long head biceps tendon sheath with tendinosis and partial medial subluxation onto the lesser tuberosity. No transection. 7 mm loose bodies suspected within the long head biceps tendon sheath. Circumferential labral tearing and maceration. Severe glenohumeral joint osteoarthritis with complete grade 4 chondral loss, significant cortical remodeling, and multifocal subcortical cystic change. Posterior glenoid rim is truncated. Large inferior humeral head osteophyte formation. Moderate size joint effusion. 10 mm loose body is suspected along the posterior superior margin of the glenoid rim. A 9 mm paralabral cyst noted along the superior glenoid rim. A 21 mm paralabral cyst noted along the inferior glenoid rim extending into the quadrilateral space. Impression: Supraspinatus and infraspinatus tendinosis without fluid-filled tear. Subscapularis tendinosis with intermediate grade interstitial tearing superiorly. Atrophy and fatty infiltration rotator cuff musculature as above. Long head biceps tendinosis with partial medial subluxation. Severe glenohumeral joint osteoarthritis with moderate joint effusion and 10 mm loose body posterior superiorly. Circumferential labral maceration with prominent superior and inferior paralabral cyst formation as detailed above. Mild AC joint osteoarthritis. Electronically signed by: Travis Rios MD 03/12/2019 7:56 AM CDT
== END ==
LOC: MRI 09:55
PROVIDERS: ATTEND Orthopaedic Surgery
DX: M19.012 Primary osteoarthritis, left shoulder (principal); S86.312A Strain of muscle(s) and tendon(s) of peroneal muscle group at lower leg level, left leg, initial encounter; M16.0 Bilateral primary osteoarthritis of hip

== ENCOUNTER → 2019-04-11 | Outpatient (CLI) | payer MEDICARE, OTHER ==
--- NOTE | 2019-04-12 15:45 | CT ---
PROVIDED CLINICAL HISTORY/REASON FOR EXAM: LOCALIZED, PRIMARY OSTEOARTHRITIS LT SHOULDER STUDY TYPE/TECHNIQUE: CT UPPER EXTREMITY WITHOUT IV CONTRAST This exam was performed according to our departmental dose-optimization program, which includes automated exposure control, adjustment of the mA and/or kV according to patient size and/or use of iterative reconstruction technique. COMPARISON: March 09, 2019 FINDINGS: The visualized left lung is clear. No axillary adenopathy. No acute fracture or dislocation. Rotator cuff pathology better demonstrated by MRI March 09, 2019. Mild acromioclavicular osteoarthritis. Severe left glenohumeral osteoarthritis with bulky osteophytosis, subchondral sclerosis and cyst formation. Redemonstrated intra-articular loose body measuring 1 cm posterior and superior in the joint capsule. Moderate joint effusion. High riding humeral head with narrowing of the subacromial space. Generalized rotator cuff muscular atrophy. No osseous Bankart. IMPRESSION: 1. Redemonstrated severe left glenohumeral osteoarthritis with a moderate joint effusion and a intra-articular loose body. 2. Rotator cuff pathology better demonstrated by recent MRI. 3. No acute fracture or dislocation. Electronically signed by: Hernan Schumacher MD 04/12/2019 3:38 PM CDT
== END ==
LOC: CT 15:30
PROVIDERS: ATTEND Orthopaedic Surgery
DX: M19.012 Primary osteoarthritis, left shoulder (principal)

== ENCOUNTER → 2019-04-20 | Outpatient (CLI) | payer MEDICARE, OTHER | LOC: LAB.O 12:07 | PROVIDERS: ATTEND Orthopaedic Surgery | DX: Z01.818 Encounter for other preprocedural examination (principal) ==

== ENCOUNTER → 2019-05-25 | Outpatient (CLI) | payer MEDICARE, OTHER | LOC: GMAJ 13:00 | PROVIDERS: ATTEND Family Medicine | DX: M06.9 Rheumatoid arthritis, unspecified (principal) ==

== ENCOUNTER → 2019-07-31 | Outpatient (CLI) | payer MEDICARE, OTHER | END | disposition home or self-care (01) | LOC: LAB.O 14:23 | PROVIDERS: ATTEND Orthopaedic Surgery | DX: Z01.818 Encounter for other preprocedural examination (principal) ==

== ENCOUNTER 2019-08-15 05:29 | Inpatient (IN) | payer MEDICARE, OTHER ==
--- NOTE | 2019-08-14 13:17 | HP ---
CHIEF COMPLAINT: Left shoulder pain. HISTORY OF PRESENT ILLNESS: Annita is a 63-year-old female with a history of severe pain in the shoulder. She had no trauma related to the onset of this. She has been using conservative measures which have included activity modification, anti-inflammatories and injection. Unfortunately, she has continued to have limitations in activities. Because of her ongoing limitations, she has requested operative intervention. After discussing the risks, benefits and alternatives to that, she has given informed consent. Her pain bothers her on a daily basis. She says it can range up to a 10 at times. At this point, she has had no alleviating factors any longer. Aggravating factors include any type of movement or use of the arm. There have been no neurologic symptoms. PAST SURGICAL HISTORY: 1. Bilateral total knee arthroplasty. 2. Right shoulder replacement. 3. Cataract removal. 4. Hysterectomy. 5. Cholecystectomy. MEDICATIONS: 1. Cyclobenzaprine. 2. Prednisone. 3. Triamcinolone. 4. Motrin. 5. Gabapentin. 6. Azathioprine. 7. Metoprolol. 8. Requip. 9. Omeprazole. 10. Crestor. 11. Prilosec. 12. Trazodone. 13. Desvenlafaxine. 14. Abilify. 15. Calcium. 16. Prolia. 17. Wray. 18. Fentanyl. 19. Fluticasone. PAIN CONTRACT: Dr. Sharma. ALLERGIES: NO KNOWN DRUG ALLERGIES. CODE STATUS: Full code. IMMUNIZATIONS: Up to date. SOCIAL HISTORY: The patient does not drink, smoke or use any illicit drugs. FAMILY HISTORY: None pertinent to today's complaint. REVIEW OF SYSTEMS: Positive for gastroesophageal reflux disease, anxiety, hypertension, depression and osteoporosis. Otherwise, negative except as indicated in the History of Present Illness. HEENT: The patient reports no symptoms. RESPIRATORY: The patient reports no symptoms. CARDIOVASCULAR: The patient reports no symptoms. GASTROINTESTINAL: The patient reports no symptoms GENITOURINARY: The patient reports no symptoms. MUSCULOSKELETAL: Negative except as noted in History of Present Illness. SKIN: The patient reports no symptoms. NEUROLOGIC: The patient reports no symptoms. PHYSICAL EXAMINATION: VITAL SIGNS: Blood pressure 120/69. Pulse 87. Height 5'6". Weight 188 pounds. MENTAL STATUS: The patient is awake, alert, and is able to give a good history and participate in the physical. The patient is oriented to person, place and time. SKIN: Normal tone and turgor. HEENT: Normocephalic, atraumatic. Pupils equal, round and reactive. Mucosal membranes are moist. NECK: Normal range of motion. No thyromegaly, no lymphadenopathy. CHEST: Normal respiratory excursion. CARDIAC: Regular rate and rhythm. No murmurs, rubs or gallops. MUSCULOSKELETAL: The bilateral lower extremities show full active range of motion in the hips, knees, ankles and digits. She has no malalignment or deformity. She has well-healed wounds on the anterior aspects of both knees from previous total knee arthroplasty. She has no instability. She has negative anterior and posterior drawer. She has no instability in varus or valgus testing. Strength is 5/5. She has 2+ reflexes, good capillary refill and other than the scars on her knees, the skin is intact and has normal appearance. The right upper extremity shows pain free abduction to about 150 degrees. Forward flexion is about 140 degrees. She has weakness in internal rotation and therefore has positive belly press. She has negative Neer and negative Gustafson. She has full range of motion in the elbow, wrist and digits. Strength is 5/5 of that extremity. She has good capillary refill and it is warm and well perfused. She has no crepitus, malalignment or deformity. The left upper extremity shows crepitus throughout her range of motion. She is limited to about 80 degrees of abduction. Forward flexion is to about 70 degrees. She has weakness in internal rotation and external rotation. She has positive Neer and positive Gustafson. She has no extension beyond the plane of the body secondary to pain. She has full range of motion in the elbow, wrist and digits. She has 2+ capillary refill and the skin is intact. There is no malalignment, no deformity, no crepitus of the elbow, wrist or digits on either side. RADIOLOGY: My interpretation of the x-rays shows severe end-stage arthritis. ASSESSMENT: 1. Arthritis. PLAN: The plan at this point is reverse shoulder arthroplasty. We have discussed the risks, benefits, and alternatives to that and the patient has given informed consent. #[id number] [facility]
[2019-08-15] MEDS ORDERED: SODIUM CHL 0.9% 100ML MINI-BAG 100 ML IVPB ONE (05:44)
[2019-08-15] MEDS ORDERED: SODIUM CHLORIDE 0.9% 250ML 250 ML ONE ×3 (05:45→19:30)
[2019-08-15] MEDS ORDERED: ceFAZolin SODIUM 1 GM VIAL ONE ×2 (05:45→09:27)
[2019-08-15] MEDS ORDERED: VANCOMYCIN HCL INJ 1,000 MG VIAL IVPB ONE ×4 (05:45→19:32)
[2019-08-15] MEDS ORDERED: LACTATED RINGERS 1,000 ML ONE (05:45)
[2019-08-15] MEDS ORDERED: TRANEXAMIC ACID 1,000 MG/10 ML VIAL ONE ×2 (05:45→05:46)
[2019-08-15] MEDS ORDERED: SODIUM CHLORIDE 0.9% 100ML 100 ML IVPB ONE (05:46)
[2019-08-15] MEDS ORDERED: BUPIVACAINE LIPOSOME 13.3 MG/ML VIAL INJ ONE ×2 (06:34→06:46)
[2019-08-15] MEDS ORDERED: CLINDAMYCIN IV 900MG 50 ML IVPB ONE (06:34)
[2019-08-15] MEDS ORDERED: MIDAZOLAM INJ 2 MG/2 ML VIAL ONE (06:37)
[2019-08-15] MEDS ORDERED: KETAMINE HCL 100 MG/ML VIAL ONE (06:37)
[2019-08-15] MEDS ORDERED: fentaNYL CITRATE INJ 50 MCG/ML AMP ONE (06:37)
[2019-08-15] MEDS ORDERED: ROCURONIUM BROMIDE 10 MG/ML VIAL ONE (06:37)
[2019-08-15] MEDS ORDERED: ACETAMINOPHEN IV 1000MG 100 ML ONE (06:37)
[2019-08-15] MEDS ORDERED: HYDROCORTISONE SOD SUCC INJ 100 MG/2 ML VIAL ONE ×2 (07:29→08:23)
[2019-08-15] MEDS ORDERED: ELECTROLYTE-A 1,000 ML IVS ONE ×2 (07:46→09:11)
[2019-08-15] MEDS: BUPIVACAINE 0.5% 30 ML VIAL INJ ONE ×2 (07:59→08:00)
[2019-08-15] MEDS: VANCOMYCIN HCL INJ 1,000 MG VIAL IVPB ONE ×2 (08:01→09:25)
[2019-08-15] MEDS ORDERED: SUGAMMADEX SODIUM 200 MG/2 ML VIAL IV ONE (09:32)
[2019-08-15] MEDS ORDERED: ALUMINUM & MAGNESIUM HYDROXIDE 30 ML UD PO PRN (09:42)
[2019-08-15] MEDS ORDERED: ONDANSETRON INJ 4 MG/2 ML VIAL IV PRN (09:42)
[2019-08-15] MEDS ORDERED: BISACODYL SUPPOSITORY 10 MG PR PRN (09:42)
[2019-08-15] MEDS ORDERED: TEMAZEPAM 15 MG CAP PO PRN (09:42)
[2019-08-15] MEDS ORDERED: ACETAMINOPHEN 500 MG TAB PO PRN (09:42)
[2019-08-15] MEDS ORDERED: SODIUM CHLORIDE 0.9% (FLUSH) 10 ML SYG IV PRN (09:42)
[2019-08-15] MEDS ORDERED: DEX 5% W/NACL 0.45% 1000ML 1,000 ML IVS PRN (09:42)
[2019-08-15] MEDS ORDERED: MAGNESIUM HYDROXIDE 30 ML UD PO PRN (09:42)
[2019-08-15] MEDS ORDERED: ZOLPIDEM TARTRATE 5 MG TAB PO PRN (09:42)
[2019-08-15] MEDS ORDERED: MORPHINE SULFATE INJ 10 MG/ML VIAL IV PRN (09:42)
[2019-08-15] MEDS ORDERED: NALOXONE HCL INJ 0.4 MG/ML VIAL IV PRN (09:42)
[2019-08-15] MEDS ORDERED: TRANEXAMIC ACID INJ 1,000 MG in SODIUM CHLORIDE 0.9% 100ML 100 ML IVPB ONE (09:42)
[2019-08-15] MEDS ORDERED: ACETAMINOPHEN 325 MG TAB PO PRN (09:42)
[2019-08-15] MEDS ORDERED: HYDROcodone 5MG/APAP 325MG 1 EA TAB PO PRN (09:42)
[2019-08-15] MEDS ORDERED: MORPHINE SULFATE INJ 10 MG/ML VIAL IM PRN (09:42)
[2019-08-15] MEDS ORDERED: BENZOCAINE-MENTH LOZ (CEPACOL) 1 EA LOZ MT PRN (09:42)
[2019-08-15] MEDS ORDERED: PROMETHAZINE HCL INJ 12.5 MG in SODIUM CHLORIDE 0.9% 50ML 50 ML IVPB PRN (09:42)
[2019-08-15] MEDS ORDERED: PROMETHAZINE HCL INJ 25 MG in SODIUM CHLORIDE 0.9% 50ML 50 ML IVPB PRN (09:42)
[2019-08-15] MEDS ORDERED: raNITIdine HCL INJ 25 MG/ML VIAL IV ONE (10:00)
[2019-08-15] MEDS ORDERED: ePHEDrine SULF 50 MG/ML IV ONE (10:00)
[2019-08-15] MEDS ORDERED: KETOROLAC TROMETHAMINE INJ 30 MG/ML VIAL IV ONE (10:00)
[2019-08-15] MEDS ORDERED: DEXAMETHASONE INJ 10 MG/ML VIAL IV ONE (10:00)
[2019-08-15] MEDS ORDERED: PROPOFOL 200 MG/20 ML VIAL IV ONE (10:00)
[2019-08-15] MEDS ORDERED: LIDOCAINE 1% 10 ML VIAL INJ ONE (10:00)
[2019-08-15] MEDS ORDERED: SODIUM CHLORIDE 0.9% 50 ML VIAL INJ ONE (10:00)
[2019-08-15] MEDS ORDERED: GLYCOPYRROLATE 0.2 MG/ML VIAL IV ONE (10:00)
[2019-08-15] MEDS ORDERED: CLINDAMYCIN INJ (VIAL) 300 MG in SODIUM CHLORIDE 0.9% 50ML 50 ML IVPB SCH (10:00)
[2019-08-15] MEDS ORDERED: IV SET AND CAP CHANGE INJ INJ SCH (10:00)
[2019-08-15] MEDS ORDERED: MORPHINE PCA 1 MG/ML 100 ML BAG IVPB SCH (10:00)
[2019-08-15] MEDS ORDERED: MORPHINE PCA 1 MG/ML 100 ML BAG IVPB ONE ×2 (10:35→11:03)
--- NOTE | 2019-08-15 11:52 | OP ---
DATE OF PROCEDURE: 08/15/19 PREOPERATIVE DIAGNOSIS: 1. Left shoulder arthritis. 2. Rotator cuff syndrome. POSTOPERATIVE DIAGNOSIS: 1. Left shoulder arthritis. 2. Rotator cuff syndrome. PROCEDURE: 1. Reverse shoulder arthroplasty. SURGEON: Aniceto Emerson MD. INSOLE AND OUTSOLE PREPARER: Angelo Stanford CST, SA-C. ANESTHESIA: General anesthesia. COMPLICATIONS: None. FINDINGS: 1. Severe arthritis of the shoulder. 2. Rupture of the supraspinatus and superior half of the subscapularis. 3. Rupture of the biceps tendon. INDICATION: Ms. Mix has a long history of shoulder pain that has been getting progressively worse. She has had surgical intervention on the contralateral site. Because of the failure of conservative measures on her left, she has now requested operative intervention. After discussing the risks, benefits and alternatives to that, the patient gave informed for that. PROCEDURE: The patient was brought to the Operating Room and placed in the supine position. General anesthesia was induced. The patient was transitioned into the beach chair position. Care was taken to ensure all bony prominences were well padded. The arm and shoulder were then sterilely prepped and draped. Following prepping and draping, a standard deltopectoral approach was used. The remaining inferior aspect of the subscapularis was detached and care was taken to protect the axillary nerve. The shoulder glenohumeral joint was dislocated and the proximal humerus was identified. The proximal humeral cut was made and following that, the humeral canal was broached and reamed. A size 13 proximal stem was found to fit very well. Following that, a protector plate was applied to the proximal humerus and the glenoid was exposed. The glenoid labrum and other intervening soft tissues were removed to get excellent exposure. Following that, a pin was placed about 12 mm superior to the inferior edge of the glenoid. It was then sequentially reamed to a bleeding bony bed on the glenoid. Following that, a 28 mm baseplate was applied. Superior, inferior, anterior and posterior screws were then placed. A hooked probe was used to pull on the glenoid baseplate to ensure that it was completely seated and in good position. Following that, the glenosphere was impacted and a hemostat was used to test the stability of the glenosphere. There was no instability or motion of the baseplate or glenosphere.. Attention was focused back on the humerus and a trial cup was placed. The shoulder was reduced. It was taken through a range of motion and it was found to be stable. There was no evidence of impingement. There was no evidence of dislocation. The glenohumeral joint was again dislocated and the trial components on the humeral aspect were removed. The wound was very thoroughly irrigated and the final components were impacted in place. After impaction of the final components, the shoulder was again reduced. It was taken through a range of motion and again there was no notable instability and no notable impingement. The wound was again thoroughly irrigated and closed with reapproximation of the deltopectoral interval. Following that, the skin was closed with a combination of running and interrupted subcuticular stitches. Sterile dressings were placed. The patient was awoken from anesthesia and taken to Recovery. POSTOPERATIVE PLAN: The patient will be doing range of motion on postoperative day 1. COMPONENTS: Tracy ReUnion Shoulder, size 13 stem, size 32 glenosphere, +6 humeral cup. #[id number] MTDD
[2019-08-15] MEDS ORDERED: SODIUM CHLORIDE 0.9% 50ML 50 ML ONE ×3 (12:18→23:57)
[2019-08-15] MEDS ORDERED: CLINDAMYCIN PHOSPHATE 150 MG/ML VIAL ONE ×3 (12:18→23:57)
[2019-08-15] MEDS ORDERED: CYCLOBENZAPRINE HCL 10 MG TAB PO PRN (12:38)
[2019-08-15] MEDS ORDERED: BENZONATATE PERLES 100 MG CAP PO PRN (12:38)
[2019-08-15] MEDS: CLINDAMYCIN INJ (VIAL) 300 MG in SODIUM CHLORIDE 0.9% 50ML 50 ML IVPB SCH ×2 (12:51→19:51)
--- NOTE | 2019-08-15 13:22 | CONS ---
SUPERVISING PHYSICIAN: Leonides Coronado MD REASON FOR CONSULTATION: Medical management. HISTORY OF PRESENT ILLNESS: This is a 63-year-old female who underwent an elective procedure today. She had severe pain in her left shoulder. It was not secondary to any particular trauma. She was shown to have osteoarthritis and underwent conservative measures including activity modification, anti- inflammatories and steroid injection. None of these seemed to really help. Therefore, today she underwent a reverse shoulder arthroplasty. The patient does utilize prednisone on a chronic basis. Once the patient was induced, she did get a little bit hypotensive, however, she responded to some fluids and got stress dose of Solu-Cortef as well as Thang-Synephrine. She responded well to this and there were no other significant intraoperative complications. The patient returned to the Medical/Surgical Unit in no distress. PAST MEDICAL HISTORY: 1. Restless leg syndrome. 2. Osteoarthritis. 3. Rheumatoid arthritis followed by Dr. Mohamud in [place]. 4. Sjgren's syndrome. 5. Gastroesophageal reflux disease. 6. Hypertension. 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 PAST SURGICAL HISTORY: 1. Left total knee arthroplasty. 2. Right total knee arthroplasty. 3. Right shoulder surgery. 4. Hysterectomy. 5. Cholecystectomy. 6. Bilateral cataract removal. 7. Retinal repair of right eye due to detached retina. MEDICATIONS: 1. Abilify 5 mg daily. 2. Tessalon Perles 100 mg every 6 hours p.r.n. for cough. 3. Calcium plus D 1 tablet p.o. daily. 4. Cyclobenzaprine 10 mg p.o. t.i.d. p.r.n. for muscle cramps. 5. Prolia 60 mg subcutaneously every 6 months. 6. Desvenlafaxine 50 mg p.o. daily. 7. Famciclovir 1000 mg p.o. daily and 500 mg at bedtime. 8. Fentanyl 100 mcg per hour transdermal q.72h. 9. Fluticasone to bilateral nares b.i.d. 10. Gabapentin 600 mg p.o. b.i.d. 11. Hydrocodone 10/325 1 tablet every 6 hours p.r.n. 12. Metoprolol XL 25 mg p.o. b.i.d. 13. Omeprazole 40 mg p.o. at bedtime. 14. Prednisone 5 mg p.o. daily. 15. Requip 1 mg p.o. at bedtime for restless legs. 16. Crestor 20 mg p.o. daily. 17. Trazodone 300 mg p.o. at bedtime. PAIN CONTRACT: Records show that she has a pain contract with Dr. Sharma. ALLERGIES: NO KNOWN DRUG ALLERGIES. FAMILY HISTORY: Diabetes and breast cancer. 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 She lives in [place] with her ex-, Jose Eduardo. She does not smoke, utilize alcohol or illicit drugs. REVIEW OF SYSTEMS: Other than the left shoulder pain, normal significant positives on review of systems. PHYSICAL EXAMINATION: VITAL SIGNS: Blood pressure 127/69. Heart rate 95. Respiratory rate 15. Temperature 97.2. Oxygen saturation 93% on 2 liters. GENERAL: Ms. Mix is a 63-year-old female in no active distress. NEUROLOGIC: The patient is alert, a little bit drowsy from anesthesia. LUNGS: Clear to auscultation bilaterally. CARDIOVASCULAR: Regular rate and rhythm. Normal S1, S2. ABDOMEN: Soft. Positive bowel sounds. GENITOURINARY: Deferred. EXTREMITIES: Lower extremities with no edema. Left shoulder is wrapped in an Kirk with ice pack in place and in a sling. ASSESSMENT: 1. Left shoulder osteoarthritis status post reverse shoulder arthroplasty, postoperative day 0. 2. History of rheumatoid arthritis. 3. Hypertension. 4. Restless leg syndrome. 5. Sjgren's syndrome. 6. Gastroesophageal reflux disease. 7. Cisco-Brink. PLAN: The patient will be monitored postoperatively in the Medical/Surgical Unit. Pain control via MUTUEL CASHIER right now. We will plan on resuming her fentanyl patch as well as hydrocodone once the MUTUEL CASHIER is not utilized. I will resume her other home medications as well. #[id number] MTDD
[2019-08-15] MEDS ORDERED: ceFAZolin SODIUM 2 GRAMS PREMI 50 ML IVPB ONE ×2 (14:07→19:31)
[2019-08-15] MEDS: HYDROcodone 10MG/APAP 325MG 1 EA TAB PO PRN ×3 (14:13→23:59)
[2019-08-15] MEDS ORDERED: fentaNYL PATCH 100MCG/HR 1 EA PATCH TD SCH (14:30)
[2019-08-15] MEDS: ceFAZolin SODIUM 2 GRAMS PREMI 2 GM in PREMIX BAG 1 BAG IVPB SCH ×2 (15:37→23:53)
[2019-08-15] MEDS: VANCOMYCIN HCL INJ 1,000 MG in SODIUM CHLORIDE 0.9% 250ML 250 ML IVPB SCH (17:20)
[2019-08-15] MEDS: CELECOXIB 100 MG CAP PO SCH (17:21)
[2019-08-15] MEDS: CYCLOBENZAPRINE HCL 10 MG TAB PO PRN (17:21)
[2019-08-15] MEDS ORDERED: ENOXAPARIN SODIUM 30 MG/0.3 ML SYG SUBCU ONE (19:31)
--- NOTE | 2019-08-15 20:08 | RAD ---
EXAM DESCRIPTION: Shoulder,Left 1 View: CR/ CLINICAL HISTORY: 63 years Female, S/P Total Shoulder Arthroplasty COMPARISON: CT scan left clavicle and shoulder girdle March 2019 and April TECHNIQUE/FINDINGS: One view left shoulder upright portable at 1019 hours. IMPRESSION: Left total reverse shoulder arthroplasty. Customary position and near-anatomic alignment. Bone around the hardware is unremarkable. Typical postsurgical soft tissue changes with soft tissue emphysema. No abnormal radiodense material in the soft tissues. Electronically signed by: Angelo Roberts MD 08/15/2019 8:06 PM [facility]
[2019-08-15] MEDS: traZODone HCL 100 MG TAB PO SCH (20:46)
[2019-08-15] MEDS: OMEPRAZOLE CAP 20 MG CAP PO SCH (20:47)
[2019-08-15] MEDS: METOPROLOL SUCCINATE XL 25 MG TAB PO SCH (20:47)
[2019-08-15] MEDS: GABAPENTIN 300 MG CAP PO SCH (20:48)
[2019-08-15] MEDS: DOCUSATE CALCIUM 240 MG CAP PO SCH (20:48)
[2019-08-15] MEDS: FLUTICASONE PROP 0.05% NASAL 16 GM BTTL BNAS SCH (20:49)
[2019-08-15] MEDS: FAMCICLOVIR 500 MG PO SCH (20:56)
[2019-08-15] MEDS ORDERED: NON-FORMULARY MEDICATION 1 EA MIS (Gabapentin [Neurontin] 600 MG) PO SCH (21:00)
[2019-08-15] MEDS ORDERED: TRAZODONE HCL 300 MG PO SCH (21:00)
[2019-08-15] MEDS: ENOXAPARIN SODIUM 30 MG/0.3 ML SYG SUBCU SCH (23:15)
[2019-08-16] MEDS ORDERED: ARIPiprazole 5 MG TAB ONE (00:50)
[2019-08-16] MEDS: CLINDAMYCIN INJ (VIAL) 300 MG in SODIUM CHLORIDE 0.9% 50ML 50 ML IVPB SCH ×3 (03:48→19:26)
[2019-08-16] MEDS: HYDROcodone 10MG/APAP 325MG 1 EA TAB PO PRN ×5 (04:00→20:33)
[2019-08-16] MEDS: VANCOMYCIN HCL INJ 1,000 MG in SODIUM CHLORIDE 0.9% 250ML 250 ML IVPB SCH (05:46)
[2019-08-16] MEDS: ARIPiprazole 5 MG TAB PO SCH (06:14)
[2019-08-16] MEDS: CELECOXIB 100 MG CAP PO SCH ×2 (07:54→16:41)
[2019-08-16] MEDS ORDERED: ceFAZolin SODIUM 2 GRAMS PREMI 50 ML IVPB ONE (08:08)
--- NOTE | 2019-08-16 08:17 | PN ---
DATE: 08/16/19 SUBJECTIVE: She has no shoulder pain. OBJECTIVE: Afebrile. Vital signs stable. Dressing is clean, dry and intact. ASSESSMENT: Status post total shoulder arthroplasty. PLAN: The plan at this point is to being physical therapy today. [facility][id number] [facility]
[2019-08-16] MEDS: CYCLOBENZAPRINE HCL 10 MG TAB PO PRN ×2 (08:57→16:37)
[2019-08-16] MEDS: ceFAZolin SODIUM 2 GRAMS PREMI 2 GM in PREMIX BAG 1 BAG IVPB SCH (08:57)
[2019-08-16] MEDS: CALCIUM CARBONATE-VITAMIN D 500 MG TAB PO SCH (08:58)
[2019-08-16] MEDS: predniSONE 10 MG TAB PO SCH (08:58)
[2019-08-16] MEDS: MAGNESIUM OXIDE 400 MG TAB PO SCH (08:58)
[2019-08-16] MEDS: GABAPENTIN 300 MG CAP PO SCH ×2 (08:58→20:09)
[2019-08-16] MEDS: METOPROLOL SUCCINATE XL 25 MG TAB PO SCH ×2 (08:59→20:11)
[2019-08-16] MEDS ORDERED: CALCIUM CARBONATE VITAMIN D PO SCH (09:00)
[2019-08-16] MEDS ORDERED: NON-FORMULARY MEDICATION 1 EA MIS (Rosuvastatin Calcium [Crestor] 20 MG) PO SCH (09:00)
[2019-08-16] MEDS ORDERED: ATORVASTATIN 20 MG TAB PO SCH ×2 (09:00→21:00)
[2019-08-16] MEDS ORDERED: [UNRECOGNIZED DRUG - OTHER] PO SCH (09:00)
[2019-08-16] MEDS: DESVENLAFAXINE SUCCINATE 50 MG PO SCH (09:05)
[2019-08-16] MEDS: FAMCICLOVIR PO SCH (09:05)
[2019-08-16] MEDS: FLUTICASONE PROP 0.05% NASAL 16 GM BTTL BNAS SCH ×2 (09:06→20:08)
[2019-08-16] MEDS: traMADol HCL 50 MG TAB PO PRN ×2 (12:47→23:50)
--- NOTE | 2019-08-16 13:40 | PN ---
SUPERVISING PHYSICIAN: Leonides Coronado MD DATE: 08/16/19 SUBJECTIVE: The patient states she has some right hip pain which has been chronic for her, but the left shoulder pain is actually controlled with fentanyl and [place]. She is in no distress. OBJECTIVE: VITAL SIGNS: Blood pressure 98/64. Heart rate 88. Respiratory rate 18. Temperature 98.0. Oxygen saturation 95%. GENERAL: Ms. Mix is a 63-year-old female in no active distress. NEUROLOGIC: Alert and oriented. LUNGS: Clear to auscultation bilaterally. CARDIOVASCULAR: Regular rate and rhythm. Normal S1, S2. ABDOMEN: Soft. Positive bowel sounds. GENITOURINARY: Deferred. EXTREMITIES: Lower extremities with no significant edema. Left shoulder is wrapped in an Kirk with a sling in place. ASSESSMENT: 1. Left shoulder osteoarthritis status post reverse shoulder arthroplasty, postoperative day 1. 2. History of rheumatoid arthritis. 3. Hypertension. 4. Restless leg syndrome. 5. Sjgren's syndrome. 6. Gastroesophageal reflux disease. 7. Cisco-Brink virus. PLAN: Continue current medications including pain control with fentanyl and hydrocodone. The patient is going to continue with physical therapy as well. I anticipate she will go home tomorrow. #[id number] MTDD
[2019-08-16] MEDS ORDERED: SODIUM CHLORIDE 0.9% 50ML 50 ML ONE ×2 (15:24→19:21)
[2019-08-16] MEDS ORDERED: CLINDAMYCIN PHOSPHATE 150 MG/ML VIAL ONE ×2 (15:24→19:19)
[2019-08-16] MEDS: ENOXAPARIN SODIUM 30 MG/0.3 ML SYG SUBCU SCH ×2 (15:31→22:38)
[2019-08-16] MEDS: traZODone HCL 100 MG TAB PO SCH (20:06)
[2019-08-16] MEDS: FAMCICLOVIR 500 MG PO SCH (20:07)
[2019-08-16] MEDS: OMEPRAZOLE CAP 20 MG CAP PO SCH (20:10)
[2019-08-16] MEDS: DOCUSATE CALCIUM 240 MG CAP PO SCH (20:10)
[2019-08-16] MEDS: SODIUM CHLORIDE 0.9% (FLUSH) 10 ML SYG IV SCH (20:11)
[2019-08-17] MEDS: CYCLOBENZAPRINE HCL 10 MG TAB PO PRN ×2 (00:39→08:44)
[2019-08-17] MEDS: HYDROcodone 10MG/APAP 325MG 1 EA TAB PO PRN ×3 (00:39→10:27)
[2019-08-17] MEDS ORDERED: CLINDAMYCIN PHOSPHATE 150 MG/ML VIAL ONE ×2 (03:40→07:46)
[2019-08-17] MEDS ORDERED: SODIUM CHLORIDE 0.9% 50ML 0 ML ONE (03:41)
[2019-08-17] MEDS: CLINDAMYCIN INJ (VIAL) 300 MG in SODIUM CHLORIDE 0.9% 50ML 50 ML IVPB SCH (03:51)
[2019-08-17] MEDS: FAMCICLOVIR PO SCH (06:09)
[2019-08-17] MEDS: ARIPiprazole 5 MG TAB PO SCH (06:10)
[2019-08-17] MEDS: DESVENLAFAXINE SUCCINATE 50 MG PO SCH (06:10)
[2019-08-17] MEDS ORDERED: SODIUM CHLORIDE 0.9% 50ML 50 ML ONE (07:48)
[2019-08-17] MEDS: CELECOXIB 100 MG CAP PO SCH (07:51)
[2019-08-17] MEDS: MAGNESIUM OXIDE 400 MG TAB PO SCH (08:45)
[2019-08-17] MEDS: GABAPENTIN 300 MG CAP PO SCH (08:45)
[2019-08-17] MEDS: predniSONE 10 MG TAB PO SCH (08:45)
[2019-08-17] MEDS: CALCIUM CARBONATE-VITAMIN D 500 MG TAB PO SCH (08:45)
[2019-08-17] MEDS: METOPROLOL SUCCINATE XL 25 MG TAB PO SCH (08:45)
[2019-08-17] MEDS: FLUTICASONE PROP 0.05% NASAL 16 GM BTTL BNAS SCH (09:26)
[2019-08-17] MEDS: SODIUM CHLORIDE 0.9% (FLUSH) 10 ML SYG IV SCH (09:26)
[2019-08-17 10:16] VITALS: O2SAT 95
[2019-08-17 10:20] VITALS: BP 158/75; TEMP 97.8
[2019-08-17] MEDS: ENOXAPARIN SODIUM 30 MG/0.3 ML SYG SUBCU SCH (10:27)
--- NOTE | 2019-08-21 13:35 | DS ---
SUPERVISING PHYSICIAN: Leonides Coronado MD ADMISSION DIAGNOSIS: 1. Left shoulder osteoarthritis status post reverse shoulder arthroplasty, postoperative day 0. 2. History of rheumatoid arthritis. 3. Hypertension. 4. Restless leg syndrome. 5. Sjgren's syndrome. 6. Gastroesophageal reflux disease. 7. Cisco-Brink virus. DISCHARGE DIAGNOSIS: 1. Left shoulder osteoarthritis status post reverse shoulder arthroplasty, postoperative day 2. 2. History of rheumatoid arthritis. 3. Hypertension. 4. Restless leg syndrome. 5. Sjgren's syndrome. 6. Gastroesophageal reflux disease. 7. Cisco-Brink virus. REASON FOR HOSPITALIZATION: This is a 63-year-old female who underwent an elective procedure today. She had severe pain in her left shoulder. It was not secondary to any particular trauma. She was shown to have osteoarthritis and underwent conservative measures including activity modification, anti- inflammatories and steroid injection. None of these seemed to really help. Therefore, today she underwent a reverse shoulder arthroplasty. The patient does utilize prednisone on a chronic basis. Once the patient was induced, she did get a little bit hypotensive, however, she responded to some fluids and got stress dose of Solu-Cortef as well as Thang-Synephrine. She responded well to this and there were no other significant intraoperative complications. The patient returned to the Medical/Surgical Unit in no distress. LABORATORY: Postoperative hemoglobin 9.9, hematocrit 29.6. She had a drug positive for opioids. HOSPITAL COURSE: Ms. Mix was admitted on 08/15/19 for elective surgery as noted in her medical consultation. She did well preoperatively and postoperatively and advanced to the point where she was able to transition to outpatient management. DISCHARGE PHYSICAL ASSESSMENT: VITAL SIGNS: Temperature 97.8. Pulse 82. Blood pressure 158/75. Respirations 18. Saturation 98% on room air. GENERAL: The patient was resting comfortably and appeared to be in no distress. CHEST: Clear to auscultation. HEART: Regular rate and rhythm. ABDOMEN: Soft, nontender. Positive bowel sounds. EXTREMITIES: Left shoulder had a dressing in place with a sling. Distal radial pulses are strong with no reported paresthesias. NEUROLOGIC: Alert and oriented times 3. PLAN: Ms. Mix was discharged on 08/17/19 with instructions to followup with Dr. Emerson as scheduled on 08/30/19 at 9:30 AM. She was to resume her home medications as instructed and to followup with her pain management doctor for further pain management. She was told to return to the hospital should she have any worsening symptoms. Diet on discharge was to resume usual diet. Activities per physical therapy. She may shower, but no tub baths and wound management per Dr. Emerson's postoperative care. DISPOSITION: The patient is discharged home to family members. CONDITION ON DISCHARGE: Stable and improved. #[id number] [facility]
== END 2019-08-17 11:57 | disposition home or self-care (01) | DRG 483 ==
LOC: AMB 05:29 → MS 11:10
PROVIDERS: ADMIT Orthopaedic Surgery; ATTEND Nurse Practitioner Family
PROC: 0RRK00Z Replacement of Left Shoulder Joint with Reverse Ball and Socket Synthetic Substitute, Open Approach (ICD-10-PCS; principal; 2019-08-15 07:09)
DX: M19.012 Primary osteoarthritis, left shoulder (principal); I95.9 Hypotension, unspecified; M75.102 Unspecified rotator cuff tear or rupture of left shoulder, not specified as traumatic; M06.9 Rheumatoid arthritis, unspecified; G25.81 Restless legs syndrome; M35.00 Sjogren syndrome, unspecified; K21.9 Gastro-esophageal reflux disease without esophagitis; I10 Essential (primary) hypertension; B27.00 Gammaherpesviral mononucleosis without complication; Z96.653 Presence of artificial knee joint, bilateral; Z90.49 Acquired absence of other specified parts of digestive tract; Z79.891 Long term (current) use of opiate analgesic; Z79.52 Long term (current) use of systemic steroids; Z79.899 Other long term (current) drug therapy

== ENCOUNTER → 2019-10-09 | Outpatient (CLI) | payer MEDICARE, OTHER ==
--- NOTE | 2019-10-10 11:37 | RAD ---
EXAM DESCRIPTION: Shoulder,Left 2 or More Views CLINICAL HISTORY: PAIN IN LEFT SHOULDER COMPARISON: August 15, 2019 IMPRESSION: 2 views of the left shoulder show postsurgical changes from a burst shoulder arthroplasty in good positioning without complicating features. Interval resolution of soft tissue emphysema seen on previous exam. Electronically signed by: Diony Fischer MD 10/10/2019 11:[address] [facility]
== END ==
LOC: RAD 12:39
PROVIDERS: ATTEND Orthopaedic Surgery
DX: M25.512 Pain in left shoulder (principal); Z96.612 Presence of left artificial shoulder joint; Z98.890 Other specified postprocedural states

== ENCOUNTER → 2019-10-16 | Outpatient (CLI) | payer MEDICARE, OTHER ==
--- NOTE | 2019-10-17 15:50 | MRI ---
EXAM DESCRIPTION: Brain w/o Contrast: MRI. CLINICAL HISTORY: DIZZINESS COMPARISON: None. TECHNIQUE: Multiplanar, high-field MRI unit, multiple diffusion sequences, multiple conventional sequences without contrast. FINDINGS: Minimal hyperintense FLAIR and T2-weighted signal in the bilateral periventricular white matter is symmetric. Also symmetric bilateral foci of hyperintense signal in the subcortical white matter of the frontal lobe.. No hemorrhage, no cerebral edema, no mass-effect. Normal signal in the bilateral basal ganglia. Normal signal in the brainstem and cerebellar hemispheres. Concordance of the diffusion and non-diffusion sequences with no diffusion restriction. Cortical sulci, ventricles, and other CSF spaces, and the subdural spaces are minimally prominent for patient's age.. No effacement or displacement. No midline shift. No extra-axial hemorrhage. Normal flow signal void in the major vessels of the [place], and the venous sinuses. IACs are symmetric bilaterally. Normal signal in the bilateral mastoid air cells. No mass effect in the bilateral cerebellopontine angles. Pituitary gland occupies most of the sella. Base of the cerebellar tonsils is at the level of the foramen magnum. Paranasal sinuses are unremarkable.. The bony calvarium is intact. IMPRESSION: 1. Minimal periventricular white matter signal which could indicate age-related changes or early cerebral microvascular disease. Signal in the subcortical white matter of the frontal lobes could be related to migraine headaches or cerebral microvascular disease. 2. Minimal cortical and central atrophy is notable for patient's age. No hemorrhage, no cerebral edema, no mass effect. Normal noncontrast MRI diffusion study with no evidence of significant ischemia or infarction, acute or subacute. Electronically signed by: Angelo Roberts MD 10/17/2019 3:48 PM [facility]
== END ==
LOC: MRI 14:00
PROVIDERS: ATTEND Family Medicine
DX: R42 Dizziness and giddiness (principal); R90.82 White matter disease, unspecified; G31.9 Degenerative disease of nervous system, unspecified

== ENCOUNTER → 2020-01-01 | Outpatient (CLI) | payer MEDICARE, OTHER | LOC: HHH 11:07 | PROVIDERS: ATTEND Family Medicine | DX: M06.89 Other specified rheumatoid arthritis, multiple sites (principal); Z79.899 Other long term (current) drug therapy ==

== ENCOUNTER → 2020-02-13 | Outpatient (CLI) | payer MEDICARE, OTHER | LOC: HHH 12:07 | PROVIDERS: ATTEND Internal Medicine Rheumatology | DX: Z01.89 Encounter for other specified special examinations (principal); M06.89 Other specified rheumatoid arthritis, multiple sites; Z79.899 Other long term (current) drug therapy ==

== ENCOUNTER → 2020-03-04 | Outpatient (CLI) | payer MEDICARE, OTHER ==
--- NOTE | 2020-03-05 13:44 | MRI ---
PROVIDED CLINICAL HISTORY/REASON FOR EXAM: RADICULOPATHY TECHNIQUE: Multiplanar, multisequence MRI examination performed of the lumbar spine without intravenous contrast material. COMPARISON: None available. FINDINGS: Five lumbar type vertebra are assumed. The designated L5/S1 disc space is at axial T2 image 3. T12 vertebral body hemangioma. Alignment: Degenerative grade 1 anterolisthesis L3 on L4 or L4 on L5. No acute subluxation. Fracture: None present. Paraspinal Soft Tissues: Unremarkable. Retroperitoneum: Visible structures are unremarkable. Conus Medullaris: Termination at L1 level. Morphology is normal. L1/2: Disc desiccation with loss of disc space height and endplate degenerative change. Diffuse symmetric disc bulge and a posterior annular fissure. There is a superimposed central to right paracentral disc protrusion. Mild central canal stenosis. Bilateral facet hypertrophy with thickening of the ligamentum flavum. Mild bilateral neural foraminal narrowing more pronounced on the left. L2/3: Disc desiccation with loss of disc space height and endplate degenerative change. Diffuse symmetric disc bulge with a superimposed right paracentral disc protrusion which measures 0.8 cm TV by 0.5 cm AP by 1.1 cm CC. Moderate central canal stenosis. Bilateral facet hypertrophy with thickening of the ligamentum flavum. Mild left and moderate right neural foraminal narrowing. L3/4: Disc desiccation with loss of disc space height and endplate degenerative change. Diffuse symmetric disc bulge osteophyte complex. Uncovering of the posterior annulus. Moderate left and severe right neural foraminal narrowing. Severe central canal stenosis. Bilateral facet hypertrophy with thickening of the ligamentum flavum. L4/5: Disc desiccation with loss of disc space height posteriorly. Diffuse symmetric disc bulge. Moderate right and mild left neural foraminal narrowing. Severe central canal stenosis. Bilateral facet hypertrophy with thickening of the flavum. L5/S1: Disc desiccation with loss of posterior disc space height. Diffuse symmetric disc bulge. Severe bilateral neural foraminal narrowing. Bilateral facet hypertrophy with thickening of the ligamentum flavum. Moderate bilateral lateral stenosis which likely impinges upon the traversing S1 nerve roots. No significant central canal stenosis. IMPRESSION: Multilevel lumbar spondylosis most pronounced at L3/L4 and L4/L5 as above. Electronically signed by: Hernan Schumacher MD 03/05/2020 1:42 PM CDT
== END ==
LOC: MRI 14:00
PROVIDERS: ATTEND Nurse Practitioner Family
DX: M47.26 Other spondylosis with radiculopathy, lumbar region (principal)

== ENCOUNTER 2020-04-18 21:21 | Emergency (ER) | payer MEDICARE, OTHER ==
[2020-04-18] MEDS ORDERED: SODIUM CHLORIDE 0.9% (FLUSH) 10 ML SYG IV PRN (21:52)
[2020-04-18] MEDS ORDERED: levoFLOXacin 500MG IV 500 MG in PREMIX BAG 1 BAG IVPB ONE (21:52)
[2020-04-18] MEDS ORDERED: SODIUM CHLORIDE 0.9% 1000ML 1,000 ML IVS ONE ×2 (21:52→23:19)
--- NOTE | 2020-04-18 22:09 | ED.PDOC ---
History of Present Illness - General Chief Complaint: GI Problem Stated Complaint: fever, diarrhea Time Seen by Provider: 04/18/20 21:52 Information Source: patient, RN notes reviewed, Vital Signs reviewed, family Exam Limitations: no limitations - History of Present Illness Initial Comments: This is a 64-year-old female with history of rheumatoid arthritis and chronic pain. Presenting to the emergency department with diarrhea and reported fever of 100.6 that began this afternoon. She denies any blood in stool. She denies any vomiting. She is reportedly tested negative for COVID x2 in the last 2 weeks. She denies any travel, No suspicious food intake, no COVID contacts, no sick contacts, no hospitalizations.She denies any significant abdominal pain. She denies any cough. She denies any headache. Review of Systems - Review of Systems Constitutional: States: chills, fever. Denies: weakness EENTM: Denies: ear pain, nose pain, nose congestion, throat pain Respiratory: Denies: cough, orthopnea, short of breath, stridor Cardiology: Denies: chest pain, edema, palpitations Gastrointestinal/Abdominal: States: diarrhea. Denies: abdominal pain, constipation, nausea, vomiting Genitourinary: Denies: dysuria, hematuria, pain Musculoskeletal: Denies: joint pain, muscle pain, muscle stiffness, neck pain Skin: Denies: dryness, lesions, rash Neurological: Denies: headache, paresthesia, pre-existing deficit Endocrine: States: no symptoms reported Hematologic/Lymphatic: States: no symptoms reported Past Medical History (General) - Patient Medical History Hx Seizures: No Hx Stroke: No Hx Asthma: No Hx of COPD: No Hx Cardiac Disorders: No Hx Congestive Heart Failure: No Hx Pacemaker: No Hx Hypertension: Yes Hx Diabetes: No Hx Cancer: No Hx MRSA: Yes MRSA Source:: Nose - Vaccination History Hx Tetanus, Diphtheria Vaccination: No Hx Influenza Vaccination: Yes Hx Pneumococcal Vaccination: Yes - Social History Hx Tobacco Use: No Hx Alcohol Use: No Hx Substance Use: No Hx Substance Use Treatment: No Hx Depression: No Hx Physical Abuse: No Hx Emotional Abuse: No - Female History Patient : No Family Medical History - Family History Mother Living Status: Hx Family Hypertension: Yes Hx Family Cancer: Yes - breast Hx Family;Other: diabetes Father Family History: Unknown Living Status: Still Living Hx Family Hypertension: Yes Hx Family;Other: unknown status d/t uninvolvement. Daughter Hx Family Diabetes: Yes Physical Exam - Physical Exam General Appearance: Alert, Ill Appearing, Other - Patient has 2 100 mcg fentanyl patches to her abdominal wall, stating she forgot to take the old patch off after she put a new patch on earlier today Eyes, Ears, Nose, Throat Exam: normal ENT inspection, TMs normal Neck: non-tender, supple Respiratory: lungs clear, normal breath sounds, no respiratory distress, no accessory muscle use Cardiovascular/Chest: no edema, no gallop, no JVD, tachycardia Peripheral Pulses: No deficit Gastrointestinal/Abdominal: non tender, soft, no organomegaly Back Exam: normal inspection, no CVA tenderness, no vertebral tenderness Extremity: normal range of motion, non-tender, normal inspection Neurologic: no motor/sensory deficits, alert, normal mood/affect, oriented x 3 Skin Exam: normal color, warm/dry Progress - Progress Progress: 04/18/20 22:02 Patient tachycardic, tachypneic cyst, meets 2 sirs criteria. I suspect severe sepsis at this time. Will give fluid boluses based on ideal body weight due to morbid obesity (IBW 131 pounds / 59.5 kg). Suspect GI source 04/19/20 23:44 Patient had IV blow while in CT prior to administration of contrast. RN made several attempts to replace the IV unsuccessfully, patient refused any further attempts at IV placement by the nurses. Elected to proceed with CT without contrast. 04/19/20 00:07 Recheck after patient returned from CT. Sepsis recheck completed. Patient remains tachycardic in the 130s despite IV fluids administered thus far. Cap refill is less than 2 seconds, BPs still acceptable. Explained my concern about severe sepsis versus septic shock and plan for admission. Patient reluctantly agreed to ultrasound-guided IV placement by me. 04/19/20 00:28 04/19/20 00:38 Discussed with Buck Boogie NP revenue liaison for hospitalist. Requests repeat lactate, will admit of lactate downtrending. 04/19/20 01:05 Discussed repeat lactate Buck Boogie NP. Will admit. Agrees with plan to add Flagyl. DDX: Severe sepsis, septic shock, gastroenteritis, diverticulitis, perforation, pneumonia, UTI MDM: Patient presenting with presumed infectious diarrhea with reported fever, patient is afebrile here in the emergency department, but has been tachycardic, tachypneic and has elevated lactates. Levaquin and Flagyl given in the emergency department as well as 30 cc/kg bolus based on ideal body weight. Lactate is downtrending. CT abdomen/pelvis shows no acute process. Urine clear, chest x-ray clear. Suspect viral gastroenteritis of some variation. COVID swab is pending at this time. I also ordered stool studies, including C. difficile. Will admit for IV fluids and further monitoring. Brian Campuzano DO [facility] #[id number] - Results/Orders Results/Orders: EXAM DESCRIPTION: Chest x-ray,1 View CLINICAL HISTORY: fever COMPARISON: February 03, 2019 FINDINGS: Cardiac silhouette is within normal limits. EKG leads project over the chest. There is no focal parenchymal or pleural disease. There is no acute osseous process visualized. IMPRESSION: No evidence of acute cardiopulmonary disease. Electronically signed by: Jas Mccullough MD 04/18/2020 10:23 PM Initial EKG interpreted by oh at 2139 shows a sinus tachycardia at 121, left axi s, normal intervals, poor R wave progression, nonspecific ST and T wave changes per EXAM DESCRIPTION: Abdomen/Pelvis w/Contrast CLINICAL HISTORY: 64 years Female fever, diarrhea, sepsis COMPARISON: None TECHNIQUE: Multiple contiguous axial CT slices were taken from the diaphragms to the pubic symphysis without intravenous contrast. This exam was performed according to our departmental dose-optimization program, which includes automated exposure control, adjustment of the mA and/or kV according to patient size and/or use of iterative reconstruction technique. FINDINGS: The lung bases are clear. Visualized cardiomediastinal structures are normal. Hepatic steatosis. The gallbladder surgically absent. The bile ducts, pancreas, spleen and adrenals are normal. Mild bilateral renal cortical thinning. No urinary tract calculi. Ureters and bladder are normal. Uterus is surgically absent. No suspicious adnexal masses. Small bowel is normal in caliber. Appendix not visualized. No secondary signs of appendiceal inflammation. Large bowel is normal in course and caliber. No ascites pneumatosis or pneumoperitoneum. No lymphadenopathy. Aortoiliac atherosclerosis. No aneurysm. IVC is normal. No abdominal hernia defects no destructive osseous lesions. Spondylosis and scoliosis. Spondylosis. Most pronounced from L2-3 to L5-S1. No destructive osseous lesion. No paraspinous soft tissue abnormality. IMPRESSION: 1. No acute abnormality evident. 2. Hepatic steatosis. Electronically signed by: Bryan Myrick MD 04/19/2020 12:09 AM CDT 04/18/20 21:52 IV Care:Saline Lock per Protoc QSHIFT Telemetry .ONCE Sodium Chloride 0.9% (Flush) [Saline Flush Syringe] 10 ml IV PRN PRN EKG Stat Pulse Ox Stat 04/18/20 21:53 Pulse Oximetry Assessment DAILY 04/18/20 22:15 BLOOD CULTURE Stat 04/18/20 22:50 URINE CULTURE W/COLONY COUNT Stat 04/18/20 23:06 Hold Metformin x 48Hrs [id number] 04/19/20 00:00 LACTIC ACID Q2H 04/19/20 00:06 RESPIRATORY PANEL 2 Stat STOOL CULTURE Stat cdiff [CLOSTRIDIUM DIFFICILE AG/TOXIN] Stat CRYPTOSPORIDIA AG,STOOL Stat NOROVIRUS,EIA STOOL Stat Laboratory Results - last 24 hr 04/18/20 04/18/20 04/18/20 22:15 22:15 22:15 WBC 9.3 RBC 4.88 Hgb 13.5 Hct 40.0 MCV 81.9 MCH 27.6 MCHC 33.7 RDW 14.8 H Plt Count 168 MPV 9.5 Absolute Neuts (auto) 8.00 H Absolute Lymphs (auto) 0.80 L Absolute Monos (auto) 0.30 Absolute Eos (auto) 0.10 Absolute Basos (auto) 0.10 Neutrophils % 86.1 H Lymphocytes % 8.4 L Monocytes % 3.5 Eosinophils % 1.1 Basophils % 0.9 PT 10.4 INR 1.05 PTT (SP) 23.0 Sodium 136 Potassium 3.4 L Chloride 100 L Carbon Dioxide 24 Anion Gap 15.4 BUN 8 Creatinine 0.73 BUN/Creatinine Ratio 11.0 Random Glucose 129 H Serum Osmolality 272.0 L Lactic Acid Calcium 8.9 Total Bilirubin 0.7 AST 41 ALT 23 Alkaline Phosphatase 56 Serum Total Protein 7.5 Albumin 3.8 Globulin 3.7 H Albumin/Globulin Ratio 1.0 L Urine Color Urine Appearance Urine pH Ur Specific [place] Urine Protein Urine Glucose (UA) Urine Ketones Urine Blood Urine Nitrite Urine Bilirubin Urine Urobilinogen Ur Leukocyte Esterase Urine RBC Urine WBC Ur Epithelial Cells Urine Bacteria 04/18/20 04/18/20 22:15 22:51 WBC RBC Hgb Hct MCV MCH MCHC RDW Plt Count MPV Absolute Neuts (auto) Absolute Lymphs (auto) Absolute Monos (auto) Absolute Eos (auto) Absolute Basos (auto) Neutrophils % Lymphocytes % Monocytes % Eosinophils % Basophils % PT INR PTT (SP) Sodium Potassium Chloride Carbon Dioxide Anion Gap BUN Creatinine BUN/Creatinine Ratio Random Glucose Serum Osmolality Lactic Acid 4.1 H* Calcium Total Bilirubin AST ALT Alkaline Phosphatase Serum Total Protein Albumin Globulin Albumin/Globulin Ratio Urine Color Yellow Urine Appearance Clear Urine pH 6.0 Ur Specific [place] 1.020 Urine Protein Negative Urine Glucose (UA) Negative Urine Ketones Negative Urine Blood Trace-lysed H Urine Nitrite Negative Urine Bilirubin Negative Urine Urobilinogen 0.2 Ur Leukocyte Esterase Negative Urine RBC 1-3 Urine WBC 0-1 Ur Epithelial Cells 3-5 Urine Bacteria 0 Repeat lactate 4.0 Procedures - Additional Procedures Progress: PROCEDURE NOTE 04/19/2020 00:12 Ultrasound-guided IV placement by me at the bedside. 18-gauge 3-1/2 inch catheter placed to the right basilic vein under ultrasound guidance on first attempt. Pain was confirmed with color flow on ultrasound. Needle was advanced under ultrasound guidance and observed into the vein lumen. Venous blood was returned. No complications. Patient tolerated well. Departure - Departure Clinical Impression: Severe sepsis, Diarrhea of presumed infectious origin, Dehydration Time of Disposition: 01:01 Disposition: Admit Patient Condition: Fair Departure Forms: ED Discharge - Pt. Copy, Patient Portal Self Enrollment Referrals: Leonides Coronado MD [Primary Care Provider] - 1-2 Weeks Home Medications: Ambulatory Orders Omeprazole [Prilosec Cap] 40 mg PO BEDTIME 07/15/14 Ropinirole Hydrochloride [Requip] 1 mg PO BEDTIME 07/15/14 predniSONE 5 mg PO DAILY 07/15/14 Cyclobenzaprine HCl [Flexeril] 10 mg PO BID 02/22/17 HYDROcodone 10MG/APAP 325MG [[place] 10/325] 1 ea PO Q6H PRN 02/22/17 Famciclovir 1,000 mg PO DAILY@0700 02/01/19 Famciclovir 500 mg PO BEDTIME 02/01/19 fentaNYL PATCH 100 MCG/HR [Duragesic Patch 100 MCG/HR] 100 mcg TD Q72H 02/01/19 Aripiprazole [Abilify] 5 mg PO DAILY@0700 06/07/19 Benzonatate Perles [Tessalon Perles] 100 mg PO Q6H PRN 06/07/19 Calcium Carbonate-Vitamin D [Calcium + D3 600-200 mg-Unit] 1 tab PO DAILY 06/07/19 Denosumab [Prolia] 60 mg SC .[id number] 06/07/19 Desvenlafaxine Succinate [Desvenlafaxine ER] 50 mg PO DAILY@0706/07/19 Fluticasone Prop 0.05% Nasal [Flonase Nasal [place]] 1 spray BNAS BID PRN 06/07/19 Gabapentin [Neurontin] 600 mg PO TID 06/07/19 Metoprolol Succinate [Toprol Xl] 25 mg PO BID 06/07/19 Rosuvastatin Calcium [Crestor] 20 mg PO BEDTIME 06/07/19 Trazodone HCl 300 mg PO BEDTIME 06/07/19 Critical Care Note - Critical Care Note Total Time (mins): 39 Comments: .Patient at risk for sepsis, shock, dehydration. Time was spent in initial examination of the patient, discussions with patient and family, reviewing old records, reviewing medication list, establishing IV access, reviewing labs, documentation, discussions with consultants.
--- NOTE | 2020-04-18 22:24 | RAD ---
EXAM DESCRIPTION: Chest x-ray,1 View CLINICAL HISTORY: fever COMPARISON: February 03, 2019 FINDINGS: Cardiac silhouette is within normal limits. EKG leads project over the chest. There is no focal parenchymal or pleural disease. There is no acute osseous process visualized. IMPRESSION: No evidence of acute cardiopulmonary disease. Electronically signed by: Jas Mccullough MD 04/18/2020 10:23 PM CDT
--- NOTE | 2020-04-19 00:11 | CT ---
EXAM DESCRIPTION: Abdomen/Pelvis w/Contrast CLINICAL HISTORY: 64 years Female fever, diarrhea, sepsis COMPARISON: None TECHNIQUE: Multiple contiguous axial CT slices were taken from the diaphragms to the pubic symphysis without intravenous contrast. This exam was performed according to our departmental dose-optimization program, which includes automated exposure control, adjustment of the mA and/or kV according to patient size and/or use of iterative reconstruction technique. FINDINGS: The lung bases are clear. Visualized cardiomediastinal structures are normal. Hepatic steatosis. The gallbladder surgically absent. The bile ducts, pancreas, spleen and adrenals are normal. Mild bilateral renal cortical thinning. No urinary tract calculi. Ureters and bladder are normal. Uterus is surgically absent. No suspicious adnexal masses. Small bowel is normal in caliber. Appendix not visualized. No secondary signs of appendiceal inflammation. Large bowel is normal in course and caliber. No ascites pneumatosis or pneumoperitoneum. No lymphadenopathy. Aortoiliac atherosclerosis. No aneurysm. IVC is normal. No abdominal hernia defects no destructive osseous lesions. Spondylosis and scoliosis. Spondylosis. Most pronounced from L2-3 to L5-S1. No destructive osseous lesion. No paraspinous soft tissue abnormality. IMPRESSION: 1. No acute abnormality evident. 2. Hepatic steatosis. Electronically signed by: Bryan Mryick MD 04/19/2020 12:09 AM CDT
[2020-04-19] MEDS ORDERED: SODIUM CHLORIDE 0.9% 1000ML 1,000 ML IVS PRN (01:02)
[2020-04-19] MEDS ORDERED: LORazepam 0.5 MG TAB PO ONE (01:04)
[2020-04-19] MEDS ORDERED: metroNIDAZOLE IV PREMIX 500MG 500 MG in PREMIX BAG 1 BAG IVPB SCH ×2 (01:30→10:00)
[2020-04-19] MEDS ORDERED: ONDANSETRON INJ 4 MG/2 ML VIAL IV PRN (02:22)
[2020-04-19] MEDS ORDERED: ACETAMINOPHEN 325 MG TAB PO PRN (02:22)
[2020-04-19] MEDS ORDERED: SODIUM CHLORIDE 0.9% (FLUSH) 10 ML SYG IV PRN (02:22)
[2020-04-19] MEDS ORDERED: IV SET AND CAP CHANGE INJ INJ SCH (02:30)
[2020-04-19] MEDS ORDERED: KCL 20 MEQ/NS 1,000 ML IVS PRN (02:32)
--- NOTE | 2020-04-19 03:11 | RAD ---
EXAM DESCRIPTION: Chest,1 View CLINICAL HISTORY: 64 years Female, increased shortness of breath COMPARISON: 04/18/2020 TECHNIQUE: Single AP chest radiograph. FINDINGS: Low lung volumes. No new pulmonary opacity. No pneumothorax or pleural effusion. Essentially stable cardiomediastinal contour. Normal osseous structures. IMPRESSION: 1. Low lung volumes. 2. No active cardiopulmonary process. Electronically signed by: Bryan Myrick MD 04/19/2020 3:09 AM CDT
[2020-04-19] MEDS ORDERED: CYPROHEPTADINE HCL TAB 4 MG PO ONE (03:52)
--- NOTE | 2020-04-19 04:28 | CT ---
EXAM: Head HISTORY: 64 years Female altered mental status COMPARISON: 10/16/2019 TECHNIQUE: Contiguous axial images of the head were obtained from the skull base through the vertex without IV contrast followed by multiplanar reformats. This exam was performed according to our departmental dose-optimization program, which includes automated exposure control, adjustment of the mA and/or kV according to patient size and/or use of iterative reconstruction technique. FINDINGS: Brain volume is commensurate with patient age. No hydrocephalus. No midline shift, mass effect or abnormal extraaxial collection. No acute intracranial hemorrhage or developing infarct. Chronic microangiopathic ischemic white matter changes, minimal to mild. Orbital contents are unremarkable. The paranasal sinuses and mastoid air cells are well pneumatized. No acute calvarial abnormality. IMPRESSION: 1. No acute intracranial pathology. Electronically signed by: Bryan Myrick MD 04/19/2020 4:26 AM CDT
[2020-04-19] MEDS ORDERED: METOPROLOL TARTRATE INJ 5 MG/5 ML VIAL IV ONE ×2 (04:30)
[2020-04-19] MEDS ORDERED: ACETAMINOPHEN IV 1000MG 1,000 MG in PREMIX BOTTLE 1 BOTTLE IVPB ONE (04:45)
[2020-04-19 04:55] VITALS: TEMP 104
[2020-04-19] MEDS ORDERED: ACETAMINOPHEN IV 1000MG 100 ML ONE (05:10)
[2020-04-19 05:26] VITALS: BP 157/91; O2SAT 96
[2020-04-19] MEDS ORDERED: levoFLOXacin 500MG IV 500 MG in PREMIX BAG 1 BAG IVPB SCH (21:00)
[2020-04-19] MEDS ORDERED: ENOXAPARIN SODIUM 40 MG/0.4 ML SYG SUBCU SCH (21:00)
== END 2020-04-19 05:26 | disposition short-term general hospital (02) ==
LOC: ER 21:21 → UNDOADMOB 04-19 02:16 → MS 04-19 02:16 → ER 04-19 05:26
DX: R65.20 Severe sepsis without septic shock (principal); R19.7 Diarrhea, unspecified; E86.0 Dehydration; R00.0 Tachycardia, unspecified; R45.1 Restlessness and agitation; K76.0 Fatty (change of) liver, not elsewhere classified; I10 Essential (primary) hypertension; M06.9 Rheumatoid arthritis, unspecified; G89.29 Other chronic pain; Z79.899 Other long term (current) drug therapy; Z20.828 Contact with and (suspected) exposure to other viral communicable diseases
CPT/HCPCS: 36600; 70450; 71045; 74177; 80048; 80053; 81001; 82550; 82553; 82945; 83605; 83880; 84157; 84443; 85025; 85610; 85730; 87040; 87086; 87635; 89051; 93005; J1956; J2060; J3490; J7030

== ENCOUNTER → 2020-09-16 | Outpatient (CLI) | payer MEDICARE, OTHER | LOC: HHH 13:52 | PROVIDERS: ATTEND Family Medicine | DX: E66.9 Obesity, unspecified (principal); Z68.34 Body mass index [BMI] 34.0-34.9, adult ==